=== PATIENT | male | born 1985 | race Caucasian/White ===

== ENCOUNTER 2016-06-25 14:58 | Emergency (ER) | payer OTHER ==
--- NOTE | 2016-07-08 09:02 | ED MAR SUMMARY ---
..... Medication Administration Record [facility] [address] [place], [place] [id number] Patient: JESSIE MEDINA Visit ID: [id number] 30y, M Weight: 87.9 kg Height/Length: 63 in BMI: 34.3 ALLERGIES: No Known Drug Allergy
--- NOTE | 2016-07-08 09:02 | ED NURSING NOTES ---
Clinical Report - Nurses [facility] [address] [place] [address] 06/25/2016 15:00 Patient: JESSIE MEDINA TRIAGE Triage time 1505. Acuity: LEVEL 3. Chief Complaint: SUICIDAL THOUGHTS. Alert. No acute distress. --15:15 Carol Desouza 15:11 06/25/16. BP: 132/85. HR: 80. RR: 16. O2 saturation: 99%. Temp: 98.7 F. Pain level now 0/10. --15:15 Carol Desouza. Weight: 87.9 kg. Height/Length: 63 inches. BMI: 34.3. --15:02 Carol Desouza. Medications Gabapentin Oral. HydrOXYzine HCl Oral. Latuda Oral. Trileptal Oral. --15:13 Carol Desouza. Allergies No Known Drug Allergy. --15:13 Carol Desouza. History Arrived by private vehicle. Historian: patient. Accompanied by family. Onset. (3 days ago). ( Pt was recently released from [facility], he had an issue filling his rxs due to errors, rx are now getting filled and he can pick them up, however, pt feels he has now been off of them for so long that he needs to be restabilized as he feels SI and thinks he would want to OD on them once picked up). 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 SOCIAL HX: Heavy tobacco smoker (cigarette)- less than 1 pack per day. Occasional alcohol use. History of drug use: marijuana. --15:15 Carol Desouza. PROBLEMS: Suicidal Ideation. Hx of cutting. PTSD. Bipolar Disorder. Depression. Mental Illness. Hypertension. Facial Fracture. Head Injury. Contusion. Fall. --15:14 Carol Desouza. Interventions ID band on patient. To treatment room. --15:15 Carol Desouza. PHYSICAL ASSESSMENT Ambulatory to room. GENERAL / NEURO / PSYCH: Alert. Appears in no acute distress. Speech within normal limits. Poor eye contact. Affect appears normal. Patient appears calm and cooperative. Patient appears agitated. Patient appears well-nourished and unkempt. RESPIRATORY: Respirations not labored. Breath sounds within normal limits. CVS: Normal heart rate and rhythm. Capillary refill less than 2 seconds. GI / : Abdomen soft and nontender. Bowel sounds within normal limits. SKIN: Skin intact. Skin is warm and dry. Skin color is within normal limits. --15:16 Carol Desouza GENERAL / NEURO / PSYCH: The patient describes intermittent suicidal thoughts and has a specific plan (with access to the planned method). Patient has been placed in a safe room and direct sight of the station (3 days ago). --15:18 Carol Desouza. NURSING PROGRESS NOTES The plan of care for this patient has been created. Reassurance given. Bed placed in lowest position. Brakes of bed on. Patient ready for evaluation- chart flagged. --15:17 Carol Dseouza ( Pt noted to have eloped, security aware.). --15:39 Carol Desouza. DISPOSITION / DISCHARGE Departure time: 1530. --15:39 Carol Desouza. Locked/Released at 07/08/2016 9:01 by Sabrina Winslow R.N.
--- NOTE | 2016-07-08 09:02 | ED MED RECONCILIATION SUMMARY ---
Patient: JESSIE MEDINA Medication Reconciliation Report [facility] VisitID: [id number] [address] [place] [address] 30y, M Registration Date/Time: 06/25/2016 Weight: 87.9 kg Height/Length: 63 in. BMI: 34.3 ALLERGIES: No Known Drug Allergy The patient's Home Medications are listed below: THE FOLLOWING MEDICATIONS NEED TO BE RECONCILED: Gabapentin Oral HydrOXYzine HCl Oral Latuda Oral Trileptal Oral The source(s) of the original Home Medication information: Not obtained. The following Medications were given to the patient in the Emergency Department: None. The following Medications were prescribed to the patient: None.
--- NOTE | 2016-07-08 09:02 | ED MAR SUMMARY ---
..... Medication Administration Record [facility] [address] [place] [place], [place] [id number] Patient: JESSIE MEDINA Visit ID: [id number] 30y, M Weight: 87.9 kg Height/Length: 63 in BMI: 34.3 ALLERGIES: No Known Drug Allergy
--- NOTE | 2016-07-08 09:02 | ED NURSING NOTES ---
Clinical Report - Nurses [facility] [address] [place] [address] 06/25/2016 15:00 Patient: JESSIE MEDINA TRIAGE Triage time 1505. Acuity: LEVEL 3. Chief Complaint: SUICIDAL THOUGHTS. Alert. No acute distress. --15:15 Carol Desouza 15:11 06/25/16. BP: 132/85. HR: 80. RR: 16. O2 saturation: 99%. Temp: 98.7 F. Pain level now 0/10. --15:15 Carol Desouza. Weight: 87.9 kg. Height/Length: 63 inches. BMI: 34.3. --15:02 Carol Desouza. Medications Gabapentin Oral. HydrOXYzine HCl Oral. Latuda Oral. Trileptal Oral. --15:13 Carol Desouza. Allergies No Known Drug Allergy. --15:13 Carol Desouza. History Arrived by private vehicle. Historian: patient. Accompanied by family. Onset. (3 days ago). ( Pt was recently released from [facility], he had an issue filling his rxs due to errors, rx are now getting filled and he can pick them up, however, pt feels he has now been off of them for so long that he needs to be restabilized as he feels SI and thinks he would want to OD on them once picked up). 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 SOCIAL HX: Heavy tobacco smoker (cigarette)- less than 1 pack per day. Occasional alcohol use. History of drug use: marijuana. --15:15 Carol Desouza. PROBLEMS: Suicidal Ideation. Hx of cutting. PTSD. Bipolar Disorder. Depression. Mental Illness. Hypertension. Facial Fracture. Head Injury. Contusion. Fall. --15:14 Carol Desouza. Interventions ID band on patient. To treatment room. --15:15 Carol Desouza. PHYSICAL ASSESSMENT Ambulatory to room. GENERAL / NEURO / PSYCH: Alert. Appears in no acute distress. Speech within normal limits. Poor eye contact. Affect appears normal. Patient appears calm and cooperative. Patient appears agitated. Patient appears well-nourished and unkempt. RESPIRATORY: Respirations not labored. Breath sounds within normal limits. CVS: Normal heart rate and rhythm. Capillary refill less than 2 seconds. GI / : Abdomen soft and nontender. Bowel sounds within normal limits. SKIN: Skin intact. Skin is warm and dry. Skin color is within normal limits. --15:16 Carol Desouza GENERAL / NEURO / PSYCH: The patient describes intermittent suicidal thoughts and has a specific plan (with access to the planned method). Patient has been placed in a safe room and direct sight of the station (3 days ago). --15:18 Carol Desouza. NURSING PROGRESS NOTES The plan of care for this patient has been created. Reassurance given. Bed placed in lowest position. Brakes of bed on. Patient ready for evaluation- chart flagged. --15:17 Carol Desouza ( Pt noted to have eloped, security aware.). --15:39 Carol Desouza. DISPOSITION / DISCHARGE Departure time: 1530. --15:39 Carol Desouza. Locked/Released at 07/08/2016 9:01 by Sabrina Winslow R.N.
--- NOTE | 2016-07-08 09:02 | ED MED RECONCILIATION SUMMARY ---
Patient: JESSIE MEDINA Medication Reconciliation Report [facility] VisitID: [id number] [address] [place] [place] [address] 30y, M Registration Date/Time: 06/25/2016 Weight: 87.9 kg Height/Length: 63 in. BMI: 34.3 ALLERGIES: No Known Drug Allergy The patient's Home Medications are listed below: THE FOLLOWING MEDICATIONS NEED TO BE RECONCILED: Gabapentin Oral HydrOXYzine HCl Oral Latuda Oral Trileptal Oral The source(s) of the original Home Medication information: Not obtained. The following Medications were given to the patient in the Emergency Department: None. The following Medications were prescribed to the patient: None.
== END 2016-06-25 15:30 | disposition left against medical advice (07) ==
LOC: ED SRH 14:58
DX: F41.9 Anxiety disorder, unspecified (principal)

== ENCOUNTER → 2016-06-25 | Emergency (ER) | payer OTHER ==
--- NOTE | 2016-06-25 23:15 | DIAGNOSTIC IMAGING REPORT ---
PROCEDURE: XR WRIST MIN 3 VIEWS - RIGHT INDICATION: REEVAL OF SCAPHOID FRACTURE TECHNIQUE: Five views. COMPARISON: None. FINDINGS: There is a healing transverse fracture of the body of the carpal navicular (scaphoid) which is transfixed with solitary screw (near anatomic position). The rest the osseous structures and joint spaces are normal IMPRESSION: 1. Healing fracture of the right carpal navicular (scaphoid) transfixed with solitary screw (near anatomic position). 2. Fine discussed with Dr. Tapan Valdez.
--- NOTE | 2016-06-26 17:10 | ED CLINICAL REPORT ---
Clinical Report - Physicians/Mid Levels [facility] [address] [place] [address] 06/25/2016 16:05 Patient: JESSIE MEDINA Time Seen: 16:30 Jun 25 2016. Arrived- By private vehicle. Historian- patient. HISTORY OF PRESENT ILLNESS Chief Complaint: ANXIOUS and SUICIDAL THOUGHTS and ATTEMPT, (Appears anxious and in distress. Poor eye contact. Appears anxious ("feels hopeless"). He describes constant suicidal thoughts and has a specific plan (with access to the planned method). Prior history of suicidal thoughts. Continuous supervision provided and nurse present at the bedside. Patient has been placed in direct sight of the station. Clothes/valuables were removed and placed in the nurses station. ED physician was notified.) and No sleep for 2 days. 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 (Patient indicates that he was in an [facility] facility and got transferred over to [facility] about a week ago. Patient was stabilized on medications and discharged from [facility] with 2 days worth of medication. But because of insurance problems and pharmacy problems he has been unable to obtain his medications. He's been off his medications for 5 days. He now feels suicidal again and feels he needs to be stabilized. He admits that he tried to jump out in front of a car today. Says he can do that or take an overdose of pills. Still feels suicidal.). The patient has had anxiety. Has been depressed and had suicidal thoughts. The symptoms are described as moderate. No injury is present. REVIEW OF SYSTEMS No headache, dizziness, weakness, chest pain or palpitations. No abdominal pain, vomiting, diarrhea, black stools or fever. No sore throat, cough, difficulty breathing, urinary frequency or skin rash. No enlarged lymph nodes. All systems otherwise negative, except as recorded above. PAST HISTORY Heart disease. Prior suicide attempt. ( Admitted to [facility] about a week ago. Hit the wall with his right fist and broke his hand.). SOCIAL HISTORY Has social support. Has place to stay (Father). ADDITIONAL NOTES The nursing notes have been reviewed. PHYSICAL EXAM Vital Signs: 06/25/2016 16:16 BP: 135/82. HR: 84. RR: 16. O2 saturation: 100%. Temp: 98.8 F. Appearance: Alert. Appearance is normal. Patient is in mild distress. Anxious. Eyes: Pupils equal, round and reactive to light. Neck: Normal inspection. Neck supple. CVS: Normal heart rate and rhythm. Heart sounds normal. Respiratory: Breath sounds normal. Chest nontender. Abdomen: Soft and nontender. Back: No tenderness. Skin: Skin warm. Normal skin color. Extremities: (cast on RUE). Psych / Neuro: Appears depressed. Blunted affect. Flat affect. Speech normal. Cognition normal. Thought process and content normal. Insight and judgement normal. Cranial nerves normal (as tested). No cerebellar findings. No motor deficit. No sensory deficit. Reflexes normal. LABS, X-RAYS, AND EKG Laboratory Tests: [place] Level: (DANI: 06/26/2016 00:01) ( [facility] 06/26/2016 06:11) Final results Test Result Flag Units (Reference) LITHIUM 1.5 mmol/L (0.5-1.5) UA-Culture if indicated: (DANI: 06/25/2016 16:05) ( [facility] 06/25/2016 21:05) Final results Test Result Flag Units (Reference) URINE COLOR YELLOW URINE APPEARANCE CLEAR URINE GLUCOSE NEGATIVE (NEGATIVE) URINE BILIRUBIN NEGATIVE (NEGATIVE) URINE KETONE NEGATIVE (NEGATIVE) URINE SPECIFIC GRAVITY 1.015 (1.010-1.030) URINE PH 7.0 (5.0-8.0) URINE PROTEIN NEGATIVE (NEGATIVE) URINE UROBILINOGEN >=8.0 EU/dL (0.2-1.0) URINE NITRITE NEGATIVE (NEGATIVE) URINE BLOOD NEGATIVE (NEGATIVE) URINE LEUK ESTERASE NEGATIVE (NEGATIVE) URINE RBC Test not performed rbc/hpf (0-1) URINE WBC Test not performed wbc/hpf (0-1) URINE EPITHELIAL CELLS Test not performed EPI/hpf (0-5) URINE BACTERIA Test not performed (NONE SEEN) URINE COMMENT Test not performed CBC w Diff: (DANI: 06/25/2016 20:45) ( [facility] 06/25/2016 21:07) Final results Test Result Flag Units (Reference) WHITE BLOOD COUNT 6.4 K/uL (4.5-11.5) RED BLOOD COUNT 4.58 M/uL (4.50-5.90) HEMOGLOBIN 13.8 gm/dL (13.5-17.5) HEMATOCRIT 40.4 L % (41.0-53.0) MEAN CELL VOLUME 88 fL (80-100) MEAN CORPUSCULAR HGB 30 pg (26-34) MEAN CORPUSCULAR HGB CONC 34 g/dL (31-37) RED CELL DISTRIBUTION WIDTH 13.7 % (11.6-14.8) PLATELET COUNT 253 K/uL (150-400) NEUTROPHIL % 41.9 L % (50-75) LYMPH % 45.8 H % (25-40) MONO % 9.7 % (3-14) EOSINOPHIL % 1.9 % (0-4) BASOPHIL % 0.7 % (0-2) CMP: (DANI: 06/25/2016 20:45) ( [facility] 06/25/2016 21:19) Final results Test Result Flag Units (Reference) GLUCOSE 99 mg/dL (70-110) BUN 12 mg/dL (7-18) CREATININE 0.8 mg/dL (0.6-1.3) Estimated GFR >60 mL/min Estimated GFR- >60 mL/min Note: Persistent reduction over 3 months in eGFR<60 mL/min/1.73 m2 defines CKD. Patients with eGFR values>=60 mL/min/1.73 m2 may also have CKD if evidence ofpersistent proteinuria. Additional information may be foundat [email or web address]. SODIUM 134 L mmol/L (136-145) POTASSIUM 3.8 mmol/L (3.5-5.1) CHLORIDE 103 mmol/L (98-107) CARBON DIOXIDE 25 mmol/L (21-32) CALCIUM 8.1 L mg/dL (8.5-10.1) TOTAL PROTEIN 7.1 g/dL (6.4-8.2) ALBUMIN 3.7 g/dL (3.3-5.0) BILIRUBIN, TOTAL 0.6 mg/dL (0.0-1.0) ALKALINE PHOSPHATASE 73 U/L (46-116) AST (SGOT) 40 H U/L (15-37) ALT (SGPT) 96 H U/L (12-78) Urine Drug Screen: (DANI: 06/25/2016 16:05) ( [facility] 06/25/2016 16:46) Final results Test Result Flag Units (Reference) AMPHETAMINE/METHAMPHETAMINE NEGATIVE (NEGATIVE) BARBITURATE NEGATIVE (NEGATIVE) BENZODIAZEPINE NEGATIVE (NEGATIVE) CANNABINOID POSITIVE H (NEGATIVE) COCAINE NEGATIVE (NEGATIVE) ECSTASY NEGATIVE (NEGATIVE) METHADONE NEGATIVE (NEGATIVE) OPIATE NEGATIVE (NEGATIVE) The urine drug screen is a qualitative screening test fordrug overdose and abuse. All screen results should beconsidered as presumptive.Drugs screened for are as follows:BenzodiazepinesCocaineAmphetamines/MetamphetaminesTHC (Tetrahydrocannabinol)OpiatesBarbituratesEcstasyMethadonePositive results are unconfirmed. For confirmation, notifythe lab for the specimen to be sent to the reference lab.All confirmations must be performed by a differentmethodology.The ingestion of natural herbal and plant productscontaining Ephedra/Ephedra metabolites can produce in urineone or more substances capable of cross reacting withamphetamine/methamphetamine immunoassays. These testsprovide a preliminary result only. A more specificalternative chemical method must be used to obtain aconfirmed analytical result. . PROGRESS AND PROCEDURES Course of Care: 19:29 06/25/16. RN able to get CD P agreeable to evaluating the patient . CD P insists lab necessary for admission to facility. I reviewed the patient's history and exam findings and lab results with Dr. Newman at change of shift. My findings were consistent with those noted by him. I discussed the case with the CDP and he arranged for the patient to be admitted to a mental health facility. Patient/family counseled. Disposition: Transferred. CLINICAL IMPRESSION Suicidal ideation. (Electronically signed by Power Sprague MD 06/26/2016 21:05) Addenda for JESSIE MEDINA VisitID: [id number] Date: 06/25/2016 06/25/2016 22:39 No facility will accept patient due to splint on right wrist. XR ordered. Patient with splint on for 1 month. Will reevaluate with XR. (Electronically signed by Tapan Valdez Dr. - 06/25/2016 22:39) 06/26/2016 2:28 Patient will not be accepted at [facility] due to the splint and the fracture. Apparently if patient needs to be placed in restraints, it would worsen the fracture and the splint could be used as a weapon per facility. Not clear why a medically necessary intervention for fracture would not be allowed. Further more, has been cooperative here in the ED and NOT requiring any restraints. (Electronically signed by Tapan Valdez Dr. - 06/26/2016 2:28) 06/26/2016 2:29 Telepsych contacted. Will call us back. (Electronically signed by Tapan Valdez Dr. - 06/26/2016 2:29) 06/26/2016 5:08 Telepsych contacted. Recommendations as follows: 1. Admit patient to inpatient psych unit to ensure safety and stabilization and to initiate treatment. 2. Patient is admitted on a voluntary status 3. Safety precautions as per the protocol. Please maintain 1:1 obs while patient in the ER 4. Restart outpatient meds once reconciled 5. Place standard/routine behav health admission order set 6. Liaison closely with previous outpatient psychiatrist and providers 7. Liaison closely with patient's father 8. Patient will benefit from intensive outpatient psychotherapy and day time struction upon discharge (Electronically signed by Tapan Valdez Dr. - 06/26/2016 5:08)
--- NOTE | 2016-06-26 17:10 | ED CLINICAL REPORT ---
Clinical Report - Physicians/Mid Levels [facility] [address] [place] [address] 06/25/2016 16:05 Patient: JESSIE MEDINA Time Seen: 16:30 Jun 25 2016. Arrived- By private vehicle. Historian- patient. HISTORY OF PRESENT ILLNESS Chief Complaint: ANXIOUS and SUICIDAL THOUGHTS and ATTEMPT, (Appears anxious and in distress. Poor eye contact. Appears anxious ("feels hopeless"). He describes constant suicidal thoughts and has a specific plan (with access to the planned method). Prior history of suicidal thoughts. Continuous supervision provided and nurse present at the bedside. Patient has been placed in direct sight of the station. Clothes/valuables were removed and placed in the nurses station. ED physician was notified.) and No sleep for 2 days. 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 (Patient indicates that he was in an [facility] facility and got transferred over to [facility] about a week ago. Patient was stabilized on medications and discharged from [facility] with 2 days worth of medication. But because of insurance problems and pharmacy problems he has been unable to obtain his medications. He's been off his medications for 5 days. He now feels suicidal again and feels he needs to be stabilized. He admits that he tried to jump out in front of a car today. Says he can do that or take an overdose of pills. Still feels suicidal.). The patient has had anxiety. Has been depressed and had suicidal thoughts. The symptoms are described as moderate. No injury is present. REVIEW OF SYSTEMS No headache, dizziness, weakness, chest pain or palpitations. No abdominal pain, vomiting, diarrhea, black stools or fever. No sore throat, cough, difficulty breathing, urinary frequency or skin rash. No enlarged lymph nodes. All systems otherwise negative, except as recorded above. PAST HISTORY Heart disease. Prior suicide attempt. ( Admitted to [facility] about a week ago. Hit the wall with his right fist and broke his hand.). SOCIAL HISTORY Has social support. Has place to stay (Father). ADDITIONAL NOTES The nursing notes have been reviewed. PHYSICAL EXAM Vital Signs: 06/25/2016 16:16 BP: 135/82. HR: 84. RR: 16. O2 saturation: 100%. Temp: 98.8 F. Appearance: Alert. Appearance is normal. Patient is in mild distress. Anxious. Eyes: Pupils equal, round and reactive to light. Neck: Normal inspection. Neck supple. CVS: Normal heart rate and rhythm. Heart sounds normal. Respiratory: Breath sounds normal. Chest nontender. Abdomen: Soft and nontender. Back: No tenderness. Skin: Skin warm. Normal skin color. Extremities: (cast on RUE). Psych / Neuro: Appears depressed. Blunted affect. Flat affect. Speech normal. Cognition normal. Thought process and content normal. Insight and judgement normal. Cranial nerves normal (as tested). No cerebellar findings. No motor deficit. No sensory deficit. Reflexes normal. LABS, X-RAYS, AND EKG Laboratory Tests: [place] Level: (DANI: 06/26/2016 00:01) ( [facility] 06/26/2016 06:11) Final results Test Result Flag Units (Reference) LITHIUM 1.5 mmol/L (0.5-1.5) UA-Culture if indicated: (DANI: 06/25/2016 16:05) ( [facility] 06/25/[place] 21:05) Final results Test Result Flag Units (Reference) URINE COLOR YELLOW URINE APPEARANCE CLEAR URINE GLUCOSE NEGATIVE (NEGATIVE) URINE BILIRUBIN NEGATIVE (NEGATIVE) URINE KETONE NEGATIVE (NEGATIVE) URINE SPECIFIC GRAVITY 1.015 (1.010-1.030) URINE PH 7.0 (5.0-8.0) URINE PROTEIN NEGATIVE (NEGATIVE) URINE UROBILINOGEN >=8.0 EU/dL (0.2-1.0) URINE NITRITE NEGATIVE (NEGATIVE) URINE BLOOD NEGATIVE (NEGATIVE) URINE LEUK ESTERASE NEGATIVE (NEGATIVE) URINE RBC Test not performed rbc/hpf (0-1) URINE WBC Test not performed wbc/hpf (0-1) URINE EPITHELIAL CELLS Test not performed EPI/hpf (0-5) URINE BACTERIA Test not performed (NONE SEEN) URINE COMMENT Test not performed CBC w Diff: (DANI: 06/25/2016 20:45) ( [facility] 06/25/2016 21:07) Final results Test Result Flag Units (Reference) WHITE BLOOD COUNT 6.4 K/uL (4.5-11.5) RED BLOOD COUNT 4.58 M/uL (4.50-5.90) HEMOGLOBIN 13.8 gm/dL (13.5-17.5) HEMATOCRIT 40.4 L % (41.0-53.0) MEAN CELL VOLUME 88 fL (80-100) MEAN CORPUSCULAR HGB 30 pg (26-34) MEAN CORPUSCULAR HGB CONC 34 g/dL (31-37) RED CELL DISTRIBUTION WIDTH 13.7 % (11.6-14.8) PLATELET COUNT 253 K/uL (150-400) NEUTROPHIL % 41.9 L % (50-75) LYMPH % 45.8 H % (25-40) MONO % 9.7 % (3-14) EOSINOPHIL % 1.9 % (0-4) BASOPHIL % 0.7 % (0-2) CMP: (DANI: 06/25/2016 20:45) ( [facility] 06/25/2016 21:19) Final results Test Result Flag Units (Reference) GLUCOSE 99 mg/dL (70-110) BUN 12 mg/dL (7-18) CREATININE 0.8 mg/dL (0.6-1.3) Estimated GFR >60 mL/min Estimated GFR- >60 mL/min Note: Persistent reduction over 3 months in eGFR<60 mL/min/1.73 m2 defines CKD. Patients with eGFR values>=60 mL/min/1.73 m2 may also have CKD if evidence ofpersistent proteinuria. Additional information may be foundat [email or web address].org. SODIUM 134 L mmol/L (136-145) POTASSIUM 3.8 mmol/L (3.5-5.1) CHLORIDE 103 mmol/L (98-107) CARBON DIOXIDE 25 mmol/L (21-32) CALCIUM 8.1 L mg/dL (8.5-10.1) TOTAL PROTEIN 7.1 g/dL (6.4-8.2) ALBUMIN 3.7 g/dL (3.3-5.0) BILIRUBIN, TOTAL 0.6 mg/dL (0.0-1.0) ALKALINE PHOSPHATASE 73 U/L (46-116) AST (SGOT) 40 H U/L (15-37) ALT (SGPT) 96 H U/L (12-78) Urine Drug Screen: (DANI: 06/25/2016 16:05) ( [facility] 06/25/2016 16:46) Final results Test Result Flag Units (Reference) AMPHETAMINE/METHAMPHETAMINE NEGATIVE (NEGATIVE) BARBITURATE NEGATIVE (NEGATIVE) BENZODIAZEPINE NEGATIVE (NEGATIVE) CANNABINOID POSITIVE H (NEGATIVE) COCAINE NEGATIVE (NEGATIVE) ECSTASY NEGATIVE (NEGATIVE) METHADONE NEGATIVE (NEGATIVE) OPIATE NEGATIVE (NEGATIVE) The urine drug screen is a qualitative screening test fordrug overdose and abuse. All screen results should beconsidered as presumptive.Drugs screened for are as follows:BenzodiazepinesCocaineAmphetamines/MetamphetaminesTHC (Tetrahydrocannabinol)OpiatesBarbituratesEcstasyMethadonePositive results are unconfirmed. For confirmation, notifythe lab for the specimen to be sent to the reference lab.All confirmations must be performed by a differentmethodology.The ingestion of natural herbal and plant productscontaining Ephedra/Ephedra metabolites can produce in urineone or more substances capable of cross reacting withamphetamine/methamphetamine immunoassays. These testsprovide a preliminary result only. A more specificalternative chemical method must be used to obtain aconfirmed analytical result. . PROGRESS AND PROCEDURES Course of Care: 19:29 06/25/16. RN able to get CD P agreeable to evaluating the patient . CD P insists lab necessary for admission to facility. I reviewed the patient's history and exam findings and lab results with Dr. Newman at change of shift. My findings were consistent with those noted by him. I discussed the case with the CDP and he arranged for the patient to be admitted to a mental health facility. Patient/family counseled. Disposition: Transferred. CLINICAL IMPRESSION Suicidal ideation. (Electronically signed by Power Sprague MD 06/26/2016 21:05) Addenda for JESSIE MEDINA VisitID: [id number] Date: 06/25/2016 06/25/2016 22:39 No facility will accept patient due to splint on right wrist. XR ordered. Patient with splint on for 1 month. Will reevaluate with XR. (Electronically signed by Tapan Valdez Dr. - 06/25/2016 22:39) 06/26/2016 2:28 Patient will not be accepted at [facility] due to the splint and the fracture. Apparently if patient needs to be placed in restraints, it would worsen the fracture and the splint could be used as a weapon per facility. Not clear why a medically necessary intervention for fracture would not be allowed. Further more, has been cooperative here in the ED and NOT requiring any restraints. (Electronically signed by Tapan Valdez Dr. - 06/26/2016 2:28) 06/26/2016 2:29 Telepsych contacted. Will call us back. (Electronically signed by Tapan Valdez Dr. - 06/26/2016 2:29) 06/26/2016 5:08 Telepsych contacted. Recommendations as follows: 1. Admit patient to inpatient psych unit to ensure safety and stabilization and to initiate treatment. 2. Patient is admitted on a voluntary status 3. Safety precautions as per the protocol. Please maintain 1:1 obs while patient in the ER 4. Restart outpatient meds once reconciled 5. Place standard/routine behav health admission order set 6. Liaison closely with previous outpatient psychiatrist and providers 7. Liaison closely with patient's father 8. Patient will benefit from intensive outpatient psychotherapy and day time struction upon discharge (Electronically signed by Tapan Valdez Dr. - 06/26/2016 5:08)
--- NOTE | 2016-06-26 17:10 | ED NURSING NOTES ---
Clinical Report - Nurses [facility] [place] [address] 06/25/2016 16:05 Patient: JESSIE MEDINA TRIAGE Triage time 16:17 Jun 25 2016. Acuity: LEVEL 2. Chief Complaint: DEPRESSION, SUICIDAL THOUGHTS and ANXIETY. Alert. No acute distress. SEPSIS SCREEN: Sepsis Screen. Negative (no infection suspected/documented). BREATHALYZER: Breathalyzer (0.00). --16:22 John Connell R.N. 16:16 06/25/16. BP: 135/82. HR: 84. RR: 16. O2 saturation: 100%. Temp: 98.8 F. --16:22 John Connell R.N. Weight: 89.8 kg stated. Height/Length: 63 inches Per Patient. BMI: 35.1. --16:16 John Connell R.N. Medications Gabapentin Oral. HydrOXYzine HCl Oral. Latuda Oral. Trileptal Oral. --16:17 John Connell R.N. Allergies Acetaminophen. --16:17 John Connell R.N. The following entry was struck by Jonh Connell R.N., 17:08 (06/25/16) Reason - wrong value. <<STRICKEN ENTRY-- No Known Drug Allergy. --16:17 John Connell R.N. --END STRIKE>>. History Arrived by private vehicle. Historian: patient. Onset. (1 week). He has had anxiety and describes feelings of depression. PAST MEDICAL HX: Immunizations: up-to-date. SOCIAL HX: Current every day heavy tobacco smoker (cigarette)- less than 1 pack per day. History of drug use: marijuana. (Pt reports none used today.). No alcohol use. SELF HARM ASSESSMENT: A self harm assessment was performed. The patient answered "yes" to the question "Have you recently felt down, depressed, or hopeless?", "Have you noticed less interest or pleasure in doing things?", "Do you have thoughts of harming or killing yourself?", "Are you here because you tried to hurt yourself?", "Have you ever tried to hurt yourself before today?" and "Have you recently had thoughts about harming or killing others?". Unable to assess the patient in regard to the question "Do you have any dangerous items in your possession?". The patient reports their behavior as agitated, restless, irritable and anxious and included suicidal comments. In the ED the patient has been agitated, restless and anxious and made suicidal comments. He has been placed under continuous supervision. He was placed in direct sight of the nurses station. Clothes and valuables were removed and placed at the nurses station. The ED physician has been notified. FALL RISK ASSESSMENT: Fall risk assessment completed. No fall risk identified. NUTRITIONAL RISK ASSESSMENT: The nutritional risk assessment revealed no deficiencies. FUNCTIONAL ASSESSMENT: Functional assessment performed: independent with the activities of daily living. LEARNING NEEDS ASSESSMENT: A learning needs assessment was performed. Factors affecting the patient's ability to learn include emotional barriers. SKIN INTEGRITY ASSESSMENT: Skin integrity risk assessment was performed. (Broken wrist). --16:22 John Connell R.N. ( When patient was asked if he had a plan to harm himself, he stated he would fill his prescription for his psych medication and "take all the pills" He stated "i can't take it anymore. I feel like I'm about to have a mental break."). --16:51 Melanie Hall R.N. Interventions ID band on patient. To treatment room. --16:22 John Connell R.N. PHYSICAL ASSESSMENT Ambulatory to room. GENERAL / NEURO / PSYCH: Alert. Oriented X 4. Appears anxious and in distress. Poor eye contact. Appears anxious ("feels hopeless"). He describes constant suicidal thoughts and has a specific plan (with access to the planned method). Prior history of suicidal thoughts. Continuous supervision provided and nurse present at the bedside. Patient has been placed in direct sight of the station. Clothes/valuables were removed and placed in the nurses station. ED physician was notified. RESPIRATORY: Respirations not labored. SKIN: Skin is warm and dry. Skin color is within normal limits. --16:24 John Connell R.N. 16:24 06/25/16. SKIN: ( Ortho splint in place to R wrist. Pt reports he broke his wrist. He is c/o pain.). --17:12 John Connell R.N. NURSING PROGRESS NOTES Patient gowned. Suicide precautions initiated: a safety sweep of the room is ongoing. Room made safe. Frequent one on one supervision, nurse at bedside, checks performed every 15 minutes, clothing / valuables removed and placed at the nurse's station. Patient placed in direct sight of the nurse's station. ED Physician has been notified. Two patient identifiers checked. Call light placed in reach. Bed placed in lowest position. Patient ready for evaluation- chart flagged and ED physician notified. --16:24 John Connell R.N. Time-out completed immediately before the procedure: verified identity of patient (name and birthdate). (ETOH breathylizer 0.00) --16:29 Melanie Hall R.N. ( Belongings moved to locker and lock was applied.). --16:36 John Connell R.N. ( Pt given water. Direct line of sight from Nurse's station.). --16:37 Melanie Hall R.N. 17:07 06/25/16. ( Placed a call to [facility] to request a mental health evaluation. Was told that Pt would have to be seen by [facility] before [facility] could send anyone to evaluate him d/t Pt's voluntary admission status and because [facility] is already following the Pt. Instructions were given that [facility] will be calling ED this evening.). --17:07 John Connell R.N. The patient is calm and resting quietly. Overall patient status is the same- he states feels the same. GENERAL / NEURO / PSYCH: The patient reports restlessness. Patient appears calm and cooperative. --17:22 John Connell R.N. Patient waiting for evaluation. --17:23 John Connell R.N. ( Direct line of sight from nurse's station. Pt. sleeping, arrousable.). --17:53 Melanie Hall R.N. ( pt belongings in locker #1). --18:12 Melanie Hall R.N. ( Return phone call from [facility]. 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 He was to follow up by phone with kiki tomorrow. After telling kiki of the circumstances that brought pt. to the ED, Kiki then stated he was going to write an affidavit of detainment and send it to [facility]. He asked if I could contact [facility] and tell them of this and ask for a CDMHP to be sent to the ED. [facility] was contacted, Carlita, community education specialist. After speaking with Carlita, she stated that the patient does not meet criteria for CDP detainment as he is voluntary. She is going to call [facility] services, and discuss with him the case. one of them will be calling back the ED with the plan for the patient. At this time the patient is still sleeping. He is in direct line of sight from the nurse's station.). --18:26 Melanie Hall R.N. ( VOChong called to inform us that Diana from [facility] will be coming to assess Pt. ). --18:54 John Connell R.N. ( Pt is sleeping, direct line of sigh with nurse's station at this time, resting in room.). --18:55 John Connell R.N. ( PATTI MedinaMariana called. Will be on site approx 2029. Report to THUY Medina for end of shift coverage transfer of care.). --19:02 Melanie Hall R.N. 19:56 06/25/16. The patient is sleeping. RESPIRATORY: No respiratory distress. --19:56 Carol Park R.N. 20:54 Patient given sandwich and gatorade per request. --20:54 McQuoid, Kaitlin, ER Tech1 22:58 06/25/16. ( Xray at bedside, right wrist splint removed for films). --22:58 Carol Park R.N. 23:32 06/25/16. ( Spoke with Sandra from [facility] accept patient because he is wearing a splint on his right wrist. MD informed. Right wrist xrayed showing surgical pin in scaphoid bone, healing but not completely healed and will need to continue wearing splint. Due to need for splint on wrist, [facility] unable to accept patient as they would not be able to apply wrist restraints without possibly causing injury. [facility] Carol has informed me that Psych services will have to walk away and likely wait until tomorrow to have patient placed. Per MD, patient will not be released as he is an eminent threat to his own safety.). --23:32 Carol Park R.N. 00:38 06/26/16. ( Will be holding patient overnight for re-eval for psych placement in the morning. Patient given sandwich and milk per request. Patient voices no complaints.). --00:38 Carol Park R.N. ( Consulting tele-psyche). --02:25 Carol Park R.N. 03:52 Tele-Psych evaluation in process. --03:53 Helga Guevara R.N. 04:12 06/26/16. BP: 120/66. HR: 60. RR: 14. O2 saturation: 100%. Temp: 98.4 F. --04:12 Jose Luis Junior, ER Tech1 05:19 06/26/16. The patient reports no complaints and he is calm and resting quietly. --05:19 Carol Park R.N. Medication list and dosages obtained from [facility]. --05:56 McKaitlin Alcocer, ER Tech1 06:28 06/26/2016 -- (Mirtazapine 7.5 mg PO daily) was refused by patient because of pt said he refused to take the med. "my medication works just fine, I refuse to take this. ". Braden Mosqueda --06:28 Braden Mosqueda R.N. Care transferred and report received. --07:20 Cook, John, R.N. Call light placed in reach. Bed placed in lowest position. ( Pt resting in room, direct line of sight with nurse's station.). --07:56 John Connell R.N. ( Patient still resting, line of sight with nurse's station, performing frequent safety checks.). --08:29 John Connell R.N. ( Pt. within direct line of sight of nursing station. Still sleeping. Breakfast ordered.). --08:58 Melanie Hall R.N. ( Pt is awake in his room, asking what the plan is. Pt is relaxed, cooperative, line of sight with nurse's station.). --11:16 John Connell R.N. ( [facility] called to determine the need for a secondary request for eval from [facility] to attempt to find placement for Pt. Will call back with ETA.). --11:37 John Connell R.N. Two patient identifiers checked. Call light placed in reach. Bed placed in lowest position. ( Pt up to restroom and escorted back to his room. Checked VS.). --12:25 John Connell R.N. 12:25 06/26/16. BP: 115/62. HR: 61. RR: 16. O2 saturation: 100% on room air. Temp: 97.7 F. Pain level now: 05/20. --12:26 John Connell R.N. ( Pt voiced that "I do not want to be here." When asked if he wanted help he said "no and I never did. My dad made me come here yesterday." Pt would not answer when asked if he leaves here that he plans to harm himself. He asked staff to leave him alone right now. Direct line of sight with nurse's station. Monitoring.). --12:29 John Connell R.N. ( CDMHP at nurse's station). --13:05 Melanie Hall R.N. ( Pt resting in room. Direct line of sight with nurse's station.). --13:32 John Connell R.N. ( Pt awake, lying down in his room. No needs at this time. Informed Tech that he plans to stay. CDMHP work in progress.). --14:02 John Connell R.N. ( Pt. was seen eloping from rm. 13. Two nurses, one tech and security followed the patient to [place] . 911 was called, police given a description of patient. they will attempt to locate and bring patient back.). --15:25 Melanie Hall R.N. ( Patient brought back by police.). --15:34 Melanie Hall R.N. ( Pt awake in room, direct line of sight with nurse's station, waiting for food from [facility].). --16:17 John Connell R.N. ( Patient now resting quietly. Ate 100% of burger and fries, states he is much more relaxed and not as restless as before. Direct line of sight from nurse's station). --16:21 Melanie Hall R.N. ( Awaiting call back from [facility] to provide Pt with a soft splint for his wrist. Pt is stable, resting in his room, Pt is directly visualized from nurse's station.). --16:45 John Connell R.N. ( Nurse to nurse report to [facility] [phone].). --17:27 Melanie Hall R.N. ( Received report from Melanie. Pt is awaiting [facility] for transport to [facility].). --19:03 Braden Mosqueda R.N. 19:06 06/26/2016 Ativan (LORazepam) PO Tablets 1 mg given. Allergies verified, confirmed 5 rights and sedative warning given to the patient. --19:06 John Connell R.N. ( Report to Braden RN for end of shift coverage.). --19:08 Melanie Hall R.N. ( Pt was explained about A policy for involuntary having to have restraints placed. Pt did not want his vs taken again, but was calm. Pt ambulated to the stretcher with no assistance and was placed in restraints. Pt showed no signs of distress. Pt was alert and oriented x 4. NWA was given the chart. Report was given to the EMT. Pt belongings were given the EMT taking report and placed on the stretcher.). --19:37 Braden Mosqueda R.N. DISPOSITION / DISCHARGE Report was given. Report included patient's care, treatment, medications, reviewed medication reconcilliation, and condition (including any recent changes or anticipated changes). All questions were answered. Report was acknowledged. (Report called to THUY López, at [facility]). --17:56 Melanie Hall R.N. Departure time: 19:37. Transferred to [facility] ([facility] 19:38). --19:38 Braden Mosqueda R.N. Locked/Released at 06/26/2016 19:39 by Braden Mosqueda R.N.
--- NOTE | 2016-06-26 17:10 | ED ORDER SUMMARY ---
..... Patient: JESSIE MEDINA OrderSheet [facility] VisitID: [id number] [address] [place] [address] 30y, M Registration Date/Time: 06/25/2016 ORDER SHEET Weight: 89.8 kg (stated) Allergies: Acetaminophen GENERAL ORDERS: Urine Drug Screen Urgent (16:26 06/25/2016 SStone R.N. per protocol) (Ack 16:27 SStone R.N.) (16:28 MCook R.N.) POC Breathalyzer (16:27 06/25/2016 SStone R.N. per protocol) (Ack 16:27 SStone R.N.) (16:28 MCook R.N.) - (call ESW) (16:50 06/25/2016 Romi HOFFMANN) (16:52 MCook R.N.) CBC w Diff Urgent (20:38 06/25/2016 Romi HOFFMANN) (Ack 20:40 AMcQuoid ER Tech1) (Sent 20:53 AMcQuoid ER Tech1) (20:55 AMcQuoid ER Tech1) CMP Urgent (20:38 06/25/2016 Romi HOFFMANN) (Ack 20:40 AMcQuoid ER Tech1) (Sent 20:53 AMcQuoid ER Tech1) (20:55 AMcQuoid ER Tech1) UA-Culture if indicated Urgent (20:38 06/25/2016 Romi HOFFMANN) (Ack 20:40 AMcQuoid ER Tech1) (Sent 20:53 AMcQuoid ER Tech1) (20:55 AMcQuoid ER Tech1) Wrist 3 or 4V Right Urgent (22:38 06/25/2016 Edy Garcia) (Ack 22:40 AMcQuoid ER Tech1) (22:59 AMcQuoid ER Tech1) Consult - Psych (telepsych) (00:46 06/26/2016 Edy Garcia) (Ack 3:03 AMcQuoid ER Tech1) (4:35 EInderbitzen R.N.) - (Contact patient's pharmacy to verify medications. Notify doc with meds and dosage.) (05:09 06/26/2016 Edy Garcia) (Ack 5:13 AMcQuoid ER Tech1) (5:21 AMcQuoid ER Tech1) [place] Level Urgent (05:46 06/26/2016 Edy Garcia) (5:48 AMcQuoid ER Tech1) MEDICATION ORDERS: Ibuprofen PO 600 mg (NOW) (17:29 06/25/2016 Romi HOFFMANN) (Cancelled: Patient [id number] EInderbitzen R.N.) - (Lurasidone 80 mg PO daily) (05:44 06/26/2016 Edy Garcia) (Ack 10:36 [facility]) -- (Mirtazapine 7.5 mg PO daily) (05:45 06/26/2016 Edy Garcia) (6:28 TLewimatt R.N.) --- (Trileptal 300 mg BID) (05:45 06/26/2016 Edy Garcia) (Ack 10:36 [facility]) Ativan PO 1 mg (HIGH ALERT MEDICATION, NOW) (18:59 06/26/2016 Carlos HOFFMANN) (19:06 Anna R.N.) IV FLUIDS: ORDER SHEET NOTES: [Electronically signed by Braden Mosqueda R.N. (19:39 06/26/2016)] [Electronically signed by Power Sprague MD (21:05 06/26/2016)] [Electronically locked/signed by Braden Mosqueda R.N. (19:39 06/26/2016)]
--- NOTE | 2016-06-26 17:10 | ED NURSING NOTES ---
Clinical Report - Nurses [facility] [place] [address] 06/25/2016 16:05 Patient: JESSIE MEDINA TRIAGE Triage time 16:17 Jun 25 2016. Acuity: LEVEL 2. Chief Complaint: DEPRESSION, SUICIDAL THOUGHTS and ANXIETY. Alert. No acute distress. SEPSIS SCREEN: Sepsis Screen. Negative (no infection suspected/documented). BREATHALYZER: Breathalyzer (0.00). --16:22 John Connell R.N. 16:16 06/25/16. BP: 135/82. HR: 84. RR: 16. O2 saturation: 100%. Temp: 98.8 F. --16:22 John Connell R.N. Weight: 89.8 kg stated. Height/Length: 63 inches Per Patient. BMI: 35.1. --16:16 John Connell R.N. Medications Gabapentin Oral. HydrOXYzine HCl Oral. Latuda Oral. Trileptal Oral. --16:17 John Connell R.N. Allergies Acetaminophen. --16:17 John Connell R.N. The following entry was struck by John Connell R.N., 17:08 (06/25/16) Reason - wrong value. <<STRICKEN ENTRY-- No Known Drug Allergy. --16:17 John Connell R.N. --END STRIKE>>. History Arrived by private vehicle. Historian: patient. Onset. (1 week). He has had anxiety and describes feelings of depression. PAST MEDICAL HX: Immunizations: up-to-date. SOCIAL HX: Current every day heavy tobacco smoker (cigarette)- less than 1 pack per day. History of drug use: marijuana. (Pt reports none used today.). No alcohol use. SELF HARM ASSESSMENT: A self harm assessment was performed. The patient answered "yes" to the question "Have you recently felt down, depressed, or hopeless?", "Have you noticed less interest or pleasure in doing things?", "Do you have thoughts of harming or killing yourself?", "Are you here because you tried to hurt yourself?", "Have you ever tried to hurt yourself before today?" and "Have you recently had thoughts about harming or killing others?". Unable to assess the patient in regard to the question "Do you have any dangerous items in your possession?". The patient reports their behavior as agitated, restless, irritable and anxious and included suicidal comments. In the ED the patient has been agitated, restless and anxious and made suicidal comments. He has been placed under continuous supervision. He was placed in direct sight of the nurses station. Clothes and valuables were removed and placed at the nurses station. The ED physician has been notified. FALL RISK ASSESSMENT: Fall risk assessment completed. No fall risk identified. NUTRITIONAL RISK ASSESSMENT: The nutritional risk assessment revealed no deficiencies. FUNCTIONAL ASSESSMENT: Functional assessment performed: independent with the activities of daily living. LEARNING NEEDS ASSESSMENT: A learning needs assessment was performed. Factors affecting the patient's ability to learn include emotional barriers. SKIN INTEGRITY ASSESSMENT: Skin integrity risk assessment was performed. (Broken wrist). --16:22 John Connell R.N. ( When patient was asked if he had a plan to harm himself, he stated he would fill his prescription for his psych medication and "take all the pills" He stated "i can't take it anymore. I feel like I'm about to have a mental break."). --16:51 Melanie Hall R.N. Interventions ID band on patient. To treatment room. --16:22 John Connell R.N. PHYSICAL ASSESSMENT Ambulatory to room. GENERAL / NEURO / PSYCH: Alert. Oriented X 4. Appears anxious and in distress. Poor eye contact. Appears anxious ("feels hopeless"). He describes constant suicidal thoughts and has a specific plan (with access to the planned method). Prior history of suicidal thoughts. Continuous supervision provided and nurse present at the bedside. Patient has been placed in direct sight of the station. Clothes/valuables were removed and placed in the nurses station. ED physician was notified. RESPIRATORY: Respirations not labored. SKIN: Skin is warm and dry. Skin color is within normal limits. --16:24 John Connell R.N. 16:24 06/25/16. SKIN: ( Ortho splint in place to R wrist. Pt reports he broke his wrist. He is c/o pain.). --17:12 John Connell R.N. NURSING PROGRESS NOTES Patient gowned. Suicide precautions initiated: a safety sweep of the room is ongoing. Room made safe. Frequent one on one supervision, nurse at bedside, checks performed every 15 minutes, clothing / valuables removed and placed at the nurse's station. Patient placed in direct sight of the nurse's station. ED Physician has been notified. Two patient identifiers checked. Call light placed in reach. Bed placed in lowest position. Patient ready for evaluation- chart flagged and ED physician notified. --16:24 John Connell R.N. Time-out completed immediately before the procedure: verified identity of patient (name and birthdate). (ETOH breathylizer 0.00) --16:29 Melanie Hall R.N. ( Belongings moved to locker and lock was applied.). --16:36 John Connell R.N. ( Pt given water. Direct line of sight from Nurse's station.). --16:37 Melanie Hall R.N. 17:07 06/25/16. ( Placed a call to [facility] to request a mental health evaluation. Was told that Pt would have to be seen by [facility] before [facility] could send anyone to evaluate him d/t Pt's voluntary admission status and because [facility] is already following the Pt. Instructions were given that [facility] will be calling ED this evening.). --17:07 John Connell R.N. The patient is calm and resting quietly. Overall patient status is the same- he states feels the same. GENERAL / NEURO / PSYCH: The patient reports restlessness. Patient appears calm and cooperative. --17:22 John Connell R.N. Patient waiting for evaluation. --17:23 John Connell R.N. ( Direct line of sight from nurse's station. Pt. sleeping, arrousable.). --17:53 Melanie Hall R.N. ( pt belongings in locker #1). --18:12 Melanie Hall R.N. ( Return phone call from [facility]. Kiki explained that the patient was seen by him earlier today and they had developed a plan where the patient would machine pecan picker his medications, go home and sleep since he has been awake for 30+ hours. He was to follow up by phone with kiki tomorrow. After telling kiki of the circumstances that brought pt. to the ED, Kiki then stated he was going to write an affidavit of detainment and send it to [facility]. He asked if I could contact [facility] and tell them of this and ask for a CDMHP to be sent to the ED. [facility] was contacted, Carlita, mobility specialist. After speaking with Carlita, she stated that the patient does not meet criteria for CDP detainment as he is voluntary. She is going to call [facility] services, and discuss with him the case. one of them will be calling back the ED with the plan for the patient. At this time the patient is still sleeping. He is in direct line of sight from the nurse's station.). --18:26 Melanie Hall R.N. ( VOChong called to inform us that Diana from [facility] will be coming to assess Pt. ). --18:54 John Connell R.N. ( Pt is sleeping, direct line of sigh with nurse's station at this time, resting in room.). --18:55 John Connell R.N. ( PATTI MedinaMariana called. Will be on site approx 2029. Report to THUY Medina for end of shift coverage transfer of care.). --19:02 Melanie Hall R.N. 19:56 06/25/16. The patient is sleeping. RESPIRATORY: No respiratory distress. --19:56 Carol Park R.N. 20:54 Patient given sandwich and gatorade per request. --20:54 McQuoid, Kaitlin, ER Tech1 22:58 06/25/16. ( Xray at bedside, right wrist splint removed for films). --22:58 Carol Park R.N. 23:32 06/25/16. ( Spoke with Sandra from [facility] accept patient because he is wearing a splint on his right wrist. MD informed. Right wrist xrayed showing surgical pin in scaphoid bone, healing but not completely healed and will need to continue wearing splint. Due to need for splint on wrist, [facility] unable to accept patient as they would not be able to apply wrist restraints without possibly causing injury. [facility] Carol has informed me that Psych services will have to walk away and likely wait until tomorrow to have patient placed. Per MD, patient will not be released as he is an eminent threat to his own safety.). --23:32 Carol Park R.N. 00:38 06/26/16. ( Will be holding patient overnight for re-eval for psych placement in the morning. Patient given sandwich and milk per request. Patient voices no complaints.). --00:38 Carol Park R.N. ( Consulting tele-psyche). --02:25 Carol Park R.N. 03:52 Tele-Psych evaluation in process. --03:53 Helga Guevara R.N. 04:12 06/26/16. BP: 120/66. HR: 60. RR: 14. O2 saturation: 100%. Temp: 98.4 F. --04:12 Jose Luis Junior, ER Tech1 05:19 06/26/16. The patient reports no complaints and he is calm and resting quietly. --05:19 Carol Park R.N. Medication list and dosages obtained from [facility]. --05:56 McKaitlin Alcocer, ER Tech1 06:28 06/26/2016 -- (Mirtazapine 7.5 mg PO daily) was refused by patient because of pt said he refused to take the med. "my medication works just fine, I refuse to take this. ". Braden Mosqueda --06:28 Braden Mosqueda R.N. Care transferred and report received. --07:20 Cook, John, R.N. Call light placed in reach. Bed placed in lowest position. ( Pt resting in room, direct line of sight with nurse's station.). --07:56 John Connell R.N. ( Patient still resting, line of sight with nurse's station, performing frequent safety checks.). --08:29 John Connell R.N. ( Pt. within direct line of sight of nursing station. Still sleeping. Breakfast ordered.). --08:58 Melanie Hall R.N. ( Pt is awake in his room, asking what the plan is. Pt is relaxed, cooperative, line of sight with nurse's station.). --11:16 John Connell R.N. ( [facility] called to determine the need for a secondary request for eval from [facility] to attempt to find placement for Pt. Will call back with ETA.). --11:37 John Connell R.N. Two patient identifiers checked. Call light placed in reach. Bed placed in lowest position. ( Pt up to restroom and escorted back to his room. Checked VS.). --12:25 John Connell R.N. 12:25 06/26/16. BP: 115/62. HR: 61. RR: 16. O2 saturation: 100% on room air. Temp: 97.7 F. Pain level now: 05/20. --12:26 John Connell R.N. ( Pt voiced that "I do not want to be here." When asked if he wanted help he said "no and I never did. My dad made me come here yesterday." Pt would not answer when asked if he leaves here that he plans to harm himself. He asked staff to leave him alone right now. Direct line of sight with nurse's station. Monitoring.). --12:29 John Connell R.N. ( CDMHP at nurse's station). --13:05 Melanie Hall R.N. ( Pt resting in room. Direct line of sight with nurse's station.). --13:32 John Connell R.N. ( Pt awake, lying down in his room. No needs at this time. Informed Tech that he plans to stay. CDMHP work in progress.). --14:02 John Connell R.N. ( Pt. was seen eloping from rm. 13. Two nurses, one tech and security followed the patient to [facility] . 911 was called, police given a description of patient. they will attempt to locate and bring patient back.). --15:25 Melanie Hall R.N. ( Patient brought back by police.). --15:34 Melanie Hall R.N. ( Pt awake in room, direct line of sight with nurse's station, waiting for food from [facility].). --16:17 John Connell R.N. ( Patient now resting quietly. Ate 100% of burger and fries, states he is much more relaxed and not as restless as before. Direct line of sight from nurse's station). --16:21 Melanie Hall R.N. ( Awaiting call back from [facility] to provide Pt with a soft splint for his wrist. Pt is stable, resting in his room, Pt is directly visualized from nurse's station.). --16:45 John Connell R.N. ( Nurse to nurse report to [facility] [phone].). --17:27 Melanie Hall R.N. ( Received report from Melanie. Pt is awaiting [facility] for transport to [facility].). --19:03 Braden Mosqueda R.N. 19:06 06/26/2016 Ativan (LORazepam) PO Tablets 1 mg given. Allergies verified, confirmed 5 rights and sedative warning given to the patient. --19:06 John Connell R.N. ( Report to Braden RN for end of shift coverage.). --19:08 Melanie Hall R.N. ( Pt was explained about A policy for involuntary having to have restraints placed. Pt did not want his vs taken again, but was calm. Pt ambulated to the stretcher with no assistance and was placed in restraints. Pt showed no signs of distress. Pt was alert and oriented x 4. NWA was given the chart. Report was given to the EMT. Pt belongings were given the EMT taking report and placed on the stretcher.). --19:37 Braden Mosqueda R.N. DISPOSITION / DISCHARGE Report was given. Report included patient's care, treatment, medications, reviewed medication reconcilliation, and condition (including any recent changes or anticipated changes). All questions were answered. Report was acknowledged. (Report called to THUY López, at [facility]). --17:56 Melanie Hall R.N. Departure time: 19:37. Transferred to [facility] ([facility] 19:38). --19:38 Braden Mosqueda R.N. Locked/Released at 06/26/2016 19:39 by Braden Mosqueda R.N.
--- NOTE | 2016-06-26 17:10 | ED ORDER SUMMARY ---
..... Patient: JESSIE MEDINA OrderSheet [facility] VisitID: [id number] [address] [place] [address] 30y, M Registration Date/Time: 06/25/2016 ORDER SHEET Weight: 89.8 kg (stated) Allergies: Acetaminophen GENERAL ORDERS: Urine Drug Screen Urgent (16:26 06/25/2016 SStone R.N. per protocol) (Ack 16:27 SStone R.N.) (16:28 MCook R.N.) POC Breathalyzer (16:27 06/25/2016 SStone R.N. per protocol) (Ack 16:27 SStone R.N.) (16:28 MCook R.N.) - (call ESW) (16:50 06/25/2016 Romi HOFFMANN) (16:52 MCook R.N.) CBC w Diff Urgent (20:38 06/25/2016 Romi HOFFMANN) (Ack 20:40 AMcQuoid ER Tech1) (Sent 20:53 AMcQuoid ER Tech1) (20:55 AMcQuoid ER Tech1) CMP Urgent (20:38 06/25/2016 Romi HOFFMANN) (Ack 20:40 AMcQuoid ER Tech1) (Sent 20:53 AMcQuoid ER Tech1) (20:55 AMcQuoid ER Tech1) UA-Culture if indicated Urgent (20:38 06/25/2016 Romi HOFFMANN) (Ack 20:40 AMcQuoid ER Tech1) (Sent 20:53 AMcQuoid ER Tech1) (20:55 AMcQuoid ER Tech1) Wrist 3 or 4V Right Urgent (22:38 06/25/2016 Edy Garcia) (Ack 22:40 AMcQuoid ER Tech1) (22:59 AMcQuoid ER Tech1) Consult - Psych (telepsych) (00:46 06/26/2016 Edy Garcia) (Ack 3:03 AMcQuoid ER Tech1) (4:35 EInderbitzen R.N.) - (Contact patient's pharmacy to verify medications. Notify doc with meds and dosage.) (05:09 06/26/2016 Edy Garcia) (Ack 5:13 AMcQuoid ER Tech1) (5:21 AMcQuoid ER Tech1) [place] Urgent (05:46 06/26/2016 Edy Garcia) (5:48 AMcQuoid ER Tech1) MEDICATION ORDERS: Ibuprofen PO 600 mg (NOW) (17:29 06/25/2016 Romi HOFFMANN) (Cancelled: Patient Yutvnfv03:09 EInderbitzen R.N.) - (Lurasidone 80 mg PO daily) (05:44 06/26/2016 dEy Garcia) (Ack 10:36 [facility]) -- (Mirtazapine 7.5 mg PO daily) (05:45 06/26/2016 Edy Garcia) (6:28 TLewimatt R.N.) --- (Trileptal 300 mg BID) (05:45 06/26/2016 Edy Garcia) (Ack 10:36 [facility]) Ativan PO 1 mg (HIGH ALERT MEDICATION, NOW) (18:59 06/26/2016 Carlos HOFFMANN) (19:06 Anna R.N.) IV FLUIDS: ORDER SHEET NOTES: [Electronically signed by Braden Mosqueda R.N. (19:39 06/26/2016)] [Electronically signed by Power Sprague MD (21:05 06/26/2016)] [Electronically locked/signed by Braden Mosqueda R.N. (19:39 06/26/2016)]
--- NOTE | 2016-06-26 21:05 | ED MED RECONCILIATION SUMMARY ---
Patient: JESSIE MEDINA Medication Reconciliation Report [facility] VisitID: [id number] [address] [place] [address] 30y, M Registration Date/Time: 06/25/2016 Weight: 89.8 kg Height/Length: 63 in. BMI: 35.1 ALLERGIES: Acetaminophen The patient's Home Medications are listed below: THE FOLLOWING MEDICATIONS NEED TO BE RECONCILED: Gabapentin Oral HydrOXYzine HCl Oral Latuda Oral Trileptal Oral The source(s) of the original Home Medication information: Not obtained. The following Medications were given to the patient in the Emergency Department: Ativan [PO] PO 1 mg, administered: 06/26/2016 7:06:00 PM The following Medications were prescribed to the patient: None.
--- NOTE | 2016-06-26 21:05 | ED DISCHARGE INSTRUCTIONS ---
Patient: JESSIE MEDINA General Instructions [facility] VisitID: [id number] [address] [place] [address] 30y, M Registration Date/Time: 06/25/2016 Suicidal ideation. (Electronically signed by Power Sprague MD 06/26/2016 21:05)
--- NOTE | 2016-06-26 21:05 | ED MED RECONCILIATION SUMMARY ---
Patient: JESSIE MEDINA Medication Reconciliation Report [facility] VisitID: [id number] [address] [place] [address] 30y, M Registration Date/Time: 06/25/2016 Weight: 89.8 kg Height/Length: 63 in. BMI: 35.1 ALLERGIES: Acetaminophen The patient's Home Medications are listed below: THE FOLLOWING MEDICATIONS NEED TO BE RECONCILED: Gabapentin Oral HydrOXYzine HCl Oral Latuda Oral Trileptal Oral The source(s) of the original Home Medication information: Not obtained. The following Medications were given to the patient in the Emergency Department: Ativan [PO] PO 1 mg, administered: 06/26/2016 7:06:00 PM The following Medications were prescribed to the patient: None.
--- NOTE | 2016-06-26 21:05 | ED DISCHARGE INSTRUCTIONS ---
Patient: JESSIE MEDINA General Instructions [facility] VisitID: [id number] [address] [place] [address] 30y, M Registration Date/Time: 06/25/2016 Suicidal ideation. (Electronically signed by Power Sprague MD 06/26/2016 21:05)
--- NOTE | 2016-06-26 21:05 | ED MAR SUMMARY ---
..... Medication Administration Record [facility] [address] [place] [address] Patient: JESSIE MEDINA Visit ID: [id number] 30y, M Weight: 89.8 kg Height/Length: 63 in BMI: 35.1 ALLERGIES: Acetaminophen Given 19:06 06/26/2016 John Connell R.N. Medication Administered: ATIVAN [PO] (LORAZEPAM), Dose: 1 mg Tablets PO. Medication Ordered: Ativan PO 1 mg (HIGH ALERT MEDICATION, NOW).
--- NOTE | 2016-06-26 21:05 | ED MAR SUMMARY ---
..... Medication Administration Record [facility] [address] [place] [address] Patient: JESSIE MEDINA Visit ID: [id number] 30y, M Weight: 89.8 kg Height/Length: 63 in BMI: 35.1 ALLERGIES: Acetaminophen Given 19:06 06/26/2016 John Connell R.N. Medication Administered: ATIVAN [PO] (LORAZEPAM), Dose: 1 mg Tablets PO. Medication Ordered: Ativan PO 1 mg (HIGH ALERT MEDICATION, NOW).
== END ==
LOC: ED SRH 16:05
DX: R45.851 Suicidal ideations (principal); S62.91XD Unspecified fracture of right hand, subsequent encounter for fracture with routine healing; W22.09XD Striking against other stationary object, subsequent encounter; Z91.5 Personal history of self-harm

== ENCOUNTER 2016-11-15 23:28 | Emergency (ER) | payer OTHER ==
--- NOTE | 2016-11-16 06:58 | ED ORDER SUMMARY ---
..... Patient: JESSIE MEDINA OrderSheet [facility] VisitID: [id number] [place] [address] 31y, M Registration Date/Time: 11/15/2016 ORDER SHEET Weight: 81.6 kg (stated) Allergies: Acetaminophen GENERAL ORDERS: CBC w Diff Urgent (23:11/15/2016 Edy Garcia) (Ack 23:40 CHagerty ER Filling Carrier) (0:19 CBradburn R.N.) CMP Urgent (23:11/15/2016 Edy Garcia) (Ack 23:40 CHagerty ER Filling Carrier) (0:19 CBradburn R.N.) UA-Culture if indicated Urgent (:11/15/2016 Edy Garcia) (Ack 23:40 CHagerty ER Filling Carrier) (0:19 CBradburn R.N.) PT with INR Urgent (:11/15/2016 Edy Garcia) (Ack 23:40 CHagerty ER Filling Carrier) (0:19 CBradburn R.N.) Urine Drug Screen Urgent (23:11/15/2016 Edy Garcia) (Ack 23:40 CHagerty ER Filling Carrier) (0:19 CBradburn R.N.) Acetaminophen Level Urgent (23:11/15/2016 Edy Garcia) (Ack 23:40 CHagerty ER Filling Carrier) (0:19 CBradburn R.N.) Salicylate Level Urgent (23:11/15/2016 Edy Garcia) (Ack 23:40 CHagerty ER Filling Carrier) (0:19 CBradburn R.N.) Breathalyzer (23:11/15/2016 Edy Garcia) (Ack 23:40 CHagerty ER Filling Carrier) (0:53 CBradburn R.N.) MEDICATION ORDERS: IV FLUIDS: ORDER SHEET NOTES: [Electronically signed by Vanesa Yates R.N. (14:06 11/16/2016)] [Electronically signed by Tapan Valdez Dr. (06:01 11/18/2016)] [Electronically locked/signed by Vanesa Yates R.N. (14:06 11/16/2016)Duong
--- NOTE | 2016-11-16 06:58 | ED CLINICAL REPORT ---
Clinical Report - Physicians/Mid Levels [facility] [address] [place] [address] 11/15/2016 23:30 Patient: JESSIE MEDINA Time Seen: 2333; initial patient contact. Arrived- By ambulance. Historian- patient and EMS personnel. Referred (self). HISTORY OF PRESENT ILLNESS Chief Complaint: DEPRESSED and SUICIDAL THOUGHTS. This started today. The patient has experienced situational problems (family). No recent alcohol consumption. Has been depressed and had suicidal thoughts. The symptoms are described as severe. No injury is present. Additional history - tried talking with counselors but has not been able to contact them. Similar symptoms previously: None. Recent medical care: Not recently seen/assessed. REVIEW OF SYSTEMS No headache, weakness, chest pain, abdominal pain or vomiting. No diarrhea, black stools, numbness, fever or difficulty breathing. All systems otherwise negative, except as recorded above. PAST HISTORY See nurses notes. Medications: HydrOXYzine HCl Oral 50 mg, 3x a day as needed. Gabapentin Oral (Capsule 300 mg) 2 capsules, 3x a day. SEROquel Oral (Tablet 100 mg) 1 tablet, at bedtime. Latuda Oral (Tablet 80 mg) 1 tablet, daily. Trileptal Oral (Tablet 300 mg) 1 tablet, 2x a day. Allergies: Acetaminophen. Definite Severe(nausea). SOCIAL HISTORY History of drug use. Is a recovering addict. No alcohol use. Has social support. ADDITIONAL NOTES The nursing notes have been reviewed. PHYSICAL EXAM Vital Signs: 11/15/2016 23:33 BP: 114/70. HR: 62. RR: 18. O2 saturation: 98%. Temp: 97.9 F. Pain level now: 3/10. Blood pressure normal. Oxygen saturation normal. Appearance: Alert. No acute distress. (pleasant, cooperative, polite.). Eyes: Pupils equal, round and reactive to light. Neck: Normal inspection. Neck supple. No meningeal signs. CVS: Normal heart rate and rhythm. Heart sounds normal. Respiratory: Breath sounds normal. Chest nontender. Abdomen: Soft and nontender. Skin: Skin warm and dry. Normal skin color. Normal skin turgor. Extremities: Extremities exhibit normal ROM. No lower extremity edema. Psych / Neuro: Oriented X 3. Appears depressed. (affect congruent). Speech normal. Cognition normal. Thought process and content normal. Insight and judgement normal. Cranial nerves normal (as tested). No cerebellar findings. No motor deficit. LABS, X-RAYS, AND EKG Laboratory Tests: UA-Culture if indicated: (DANI: 11/16/2016 00:13) ( [facility] 11/16/2016 00:31) Final results Test Result Flag Units (Reference) URINE COLOR YELLOW URINE APPEARANCE CLEAR URINE GLUCOSE NEGATIVE (NEGATIVE) URINE BILIRUBIN NEGATIVE (NEGATIVE) URINE KETONE NEGATIVE (NEGATIVE) URINE SPECIFIC GRAVITY 1.025 (1.010-1.030) URINE PH 6.0 (5.0-8.0) URINE PROTEIN NEGATIVE (NEGATIVE) URINE UROBILINOGEN 0.2 EU/dL (0.2-1.0) URINE NITRITE NEGATIVE (NEGATIVE) URINE BLOOD NEGATIVE (NEGATIVE) URINE LEUK ESTERASE NEGATIVE (NEGATIVE) URINE RBC 0-1 rbc/hpf (0-1) URINE WBC 0-1 wbc/hpf (0-1) URINE EPITHELIAL CELLS 0-1 EPI/hpf (0-5) URINE BACTERIA NONE SEEN (NONE SEEN) URINE COMMENT CULT NOT INDICATED URINE CULTURES ARE SET-UP BASED ON THE FOLLOWING CRITERIA:POSITIVE NITRITEPOSITIVE LEUKOCYTE ESTERASEGREATER THAN 10 WHITE BLOOD CELLSMODERATE (2+) OR GREATER BACTERIA CBC w Diff: (DANI: 11/16/2016 00:13) ( [facility] [place] 11/16/2016 00:27) Final results Test Result Flag Units (Reference) WHITE BLOOD COUNT 6.8 K/uL (4.5-11.5) RED BLOOD COUNT 4.68 M/uL (4.50-5.90) HEMOGLOBIN 14.0 gm/dL (13.5-17.5) HEMATOCRIT 41.0 % (41.0-53.0) MEAN CELL VOLUME 88 fL (80-100) MEAN CORPUSCULAR HGB 30 pg (26-34) MEAN CORPUSCULAR HGB CONC 34 g/dL (31-37) RED CELL DISTRIBUTION WIDTH 13.4 % (11.6-14.8) PLATELET COUNT 215 K/uL (150-400) NEUTROPHIL % 45.8 L % (50-75) LYMPH % 43.2 H % (25-40) MONO % 8.9 % (3-14) EOSINOPHIL % 1.7 % (0-4) BASOPHIL % 0.4 % (0-2) PT with INR: (DANI: 11/16/2016 00:13) ( MsgRcvd 11/16/2016 00:31) Final results Test Result Flag Units (Reference) INR 0.9 (0.8-1.2) Low Intensity Therapy: INR 1.5-2.0 PT range 18.5-23.1Mod.Intensity Therapy: INR 2.0-3.0 PT range 23.1-31.5High Intensity Therapy: INR 2.5-3.5 PT range 27.4-35.5High Intensity Therapy 2: INR 3.0-4.0 PT range 31.5-39.3 Urine Drug Screen: (DANI: 11/16/2016 00:13) ( MsgRcvd 11/16/2016 00:38) Final results Test Result Flag Units (Reference) AMPHETAMINE/METHAMPHETAMINE NEGATIVE (NEGATIVE) BARBITURATE NEGATIVE (NEGATIVE) BENZODIAZEPINE NEGATIVE (NEGATIVE) CANNABINOID NEGATIVE (NEGATIVE) COCAINE NEGATIVE (NEGATIVE) ECSTASY NEGATIVE (NEGATIVE) METHADONE NEGATIVE (NEGATIVE) OPIATE NEGATIVE (NEGATIVE) The urine drug screen is a qualitative screening test fordrug overdose and abuse. All screen results should beconsidered as presumptive.Drugs screened for are as follows:BenzodiazepinesCocaineAmphetamines/MetamphetaminesTHC (Tetrahydrocannabinol)OpiatesBarbituratesEcstasyMethadonePositive results are unconfirmed. For confirmation, notifythe lab for the specimen to be sent to the reference lab.All confirmations must be performed by a differentmethodology.The ingestion of natural herbal and plant productscontaining Ephedra/Ephedra metabolites can produce in urineone or more substances capable of cross reacting withamphetamine/methamphetamine immunoassays. These testsprovide a preliminary result only. A more specificalternative chemical method must be used to obtain aconfirmed analytical result. Salicylate Level: (DANI: 11/16/2016 00:13) ( MsgRcvd 11/16/2016 00:33) Final results Test Result Flag Units (Reference) SALICYLATE <2.8 L mg/dL (2.8-20) CMP: (DANI: 11/16/2016 00:13) ( MsgRcvd 11/16/2016 00:43) Final results Test Result Flag Units (Reference) GLUCOSE 85 mg/dL (70-110) BUN 20 H mg/dL (7-18) CREATININE 1.0 mg/dL (0.6-1.3) Estimated GFR >60 mL/min Estimated GFR- >60 mL/min Note: Persistent reduction over 3 months in eGFR<60 mL/min/1.73 m2 defines CKD. Patients with eGFR values>=60 mL/min/1.73 m2 may also have CKD if evidence ofpersistent proteinuria. Additional information may be foundat www.kidney.org. SODIUM 141 mmol/L (136-145) POTASSIUM 4.1 mmol/L (3.5-5.1) CHLORIDE 106 mmol/L (98-107) CARBON DIOXIDE 29 mmol/L (21-32) CALCIUM 8.0 L mg/dL (8.5-10.1) TOTAL PROTEIN 6.9 g/dL (6.4-8.2) ALBUMIN 3.6 g/dL (3.3-5.0) BILIRUBIN, TOTAL 0.5 mg/dL (0.0-1.0) ALKALINE PHOSPHATASE 73 U/L (46-116) AST (SGOT) 32 U/L (15-37) ALT (SGPT) 76 U/L (12-78) ACETAMINOPHEN < 3 L ug/mL (10-30) . PROGRESS AND PROCEDURES Course of Care: the patient is a 31-year-old male presenting for evaluation of suicidal ideation. Patient without specific plan. No other concerns at this time. Patient has been appropriate and cooperative while here in the emergency department. No hallucinations or delusions. Workup ordered for medical clearance and ppsychiatric evaluation. Patient requesting something to drink while here in the emergency department. Patient was offered water, milk, juice, coffee, or tea. Patient states that he would like milk. Patient was seen by the crisis team. Patient is able to contract for safety. Was able to get patient outpatient resources and follow-up. Patient does not appear to be danger to self or others. Patient as been appropriate while here in the emergency department. Was able to arrange transfer of the patient in the morning. Patient will be managed as an outpatient. Patient reports feeling much better after his stay here in the emergency department. Patient is able to tolerate by mouth while here. Disposition: Discharged. Condition: good. CLINICAL IMPRESSION Adjustment disorder with depressed mood (acute). INSTRUCTIONS Warnings: GENERAL WARNINGS: Return or contact your physician immediately if your condition worsens or changes unexpectedly, if not improving as expected, or if other problems arise. Specifically return if pain, vomiting, bleeding, breathing difficulty or fever. symptoms return or other concerns. Your Current Medications: CONTINUE TAKING THE FOLLOWING MEDICATIONS: Gabapentin Oral : Capsule 300 mg, 2 capsules 3x a day. HydrOXYzine HCl Oral : 50 mg 3x a day, prn. Latuda Oral : Tablet 80 mg, 1 tablet daily. SEROquel Oral : Tablet 100 mg, 1 tablet at bedtime. Trileptal Oral : Tablet 300 mg, 1 tablet 2x a day. Follow-up: Return to the emergency department as needed. Follow up with your doctor as scheduled. Reason for referral: recheck today's concerns. Summary of care provided to patient via paper. Screening today revealed the patient's blood pressure to be in the normal range. The patient should follow up with a primary care provider for blood pressure management. Understanding of the discharge instructions verbalized by patient. (Electronically signed by Tapan Valdez Dr. 11/18/2016 6:01)
--- NOTE | 2016-11-16 06:58 | ED ORDER SUMMARY ---
..... Patient: JESSIE MEDINA OrderSheet [facility] VisitID: [id number] [place] [address] 31y, M Registration Date/Time: 11/15/2016 ORDER SHEET Weight: 81.6 kg (stated) Allergies: Acetaminophen GENERAL ORDERS: CBC w Diff Urgent (23:11/15/2016 Edy Garcia) (Ack 23:40 CHagerty ER Terrazzo Tile Setter) (0:19 CBradburn R.N.) CMP Urgent (23:11/15/2016 Edy Garcia) (Ack 23:40 CHagerty ER Terrazzo Tile Setter) (0:19 CBradburn R.N.) UA-Culture if indicated Urgent (:11/15/2016 Edy Garcia) (Ack 23:40 CHagerty ER Terrazzo Tile Setter) (0:19 CBradburn R.N.) PT with INR Urgent (:11/15/2016 Edy Garcia) (Ack 23:40 CHagerty ER Terrazzo Tile Setter) (0:19 CBradburn R.N.) Urine Drug Screen Urgent (23:11/15/2016 Edy Garcia) (Ack 23:40 CHagerty ER Terrazzo Tile Setter) (0:19 CBradburn R.N.) Acetaminophen Level Urgent (23:11/15/2016 Edy Garcia) (Ack 23:40 CHagerty ER Terrazzo Tile Setter) (0:19 CBradburn R.N.) Salicylate Level Urgent (23:11/15/2016 Edy Garcia) (Ack 23:40 CHagerty ER Terrazzo Tile Setter) (0:19 CBradburn R.N.) Breathalyzer (23:11/15/2016 Edy Garcia) (Ack 23:40 CHagerty ER Terrazzo Tile Setter) (0:53 CBradburn R.N.) MEDICATION ORDERS: IV FLUIDS: ORDER SHEET NOTES: [Electronically signed by Vanesa Yates R.N. (14:06 11/16/2016)] [Electronically signed by Tapan Valdez Dr. (06:01 11/18/2016)] [Electronically locked/signed by Vanesa Yates R.N. (14:06 11/16/2016)Duong
--- NOTE | 2016-11-16 06:58 | ED NURSING NOTES ---
Clinical Report - Nurses [facility] [address] [place] [address] 11/15/2016 23:30 Patient: JESSIE MEDINA TRIAGE Triage time 23:34. Acuity: LEVEL 2. Chief Complaint: DEPRESSION and SUICIDAL THOUGHTS. --23:45 Francheska Romero R.N. 23:33 11/15/16. BP: 114/70 taken on the left arm, while lying. HR: 62 (regular and normal rate). RR: 18 (regular and unlabored). O2 saturation: 98% on room air. Temp: 97.9 F (oral). Pain level now: 07/18. --23:45 Francheska Romero R.N. Weight: 81.6 kg stated. Height/Length: 63 inches Per Patient. BMI: 31.9. --23:37 Francheska Romero R.N. Medications Trileptal Oral (Tablet 300 mg) 1 tablet, 2x a day. --23:40 Francheska Romero R.N. Latuda Oral (Tablet 80 mg) 1 tablet, daily. --23:40 Francheska Romero R.N. SEROquel Oral (Tablet 100 mg) 1 tablet, at bedtime. --23:41 Francheska Romero R.N. Gabapentin Oral (Capsule 300 mg) 2 capsules, 3x a day. --23:42 Francheska Romero R.N. HydrOXYzine HCl Oral 50 mg, 3x a day as needed. --23:43 Francheska Romero R.N. Allergies Acetaminophen. Definite Severe(nausea) --23:42 Francheska Romero R.N. History Arrived by EMS. Historian: patient. Unaccompanied. Primary physician ([facility]). Onset: today. ( stressed arguing with dad does not feel like anyone appreciates him, states has been taking med , pt hx of SI felt like driving car into a tree tonight). He describes feelings of depression. Treatment MRI SPECIAL PROCEDURES TECHNOLOGIST: None. PAST MEDICAL HX: Immunizations: up-to-date. SOCIAL HX: Smoker- current status unknown. History of drug use. Is a recovering addict. (about 1 years ago). No alcohol use. No infectious disease exposure. ABUSE ASSESSMENT: No report of abuse. SELF HARM ASSESSMENT: A self harm assessment was performed. The patient answered "yes" to the question "Have you recently felt down, depressed, or hopeless?", "Have you noticed less interest or pleasure in doing things?", "Do you have thoughts of harming or killing yourself?" and "Have you ever tried to hurt yourself before today?" and "no" to the question "Are you here because you tried to hurt yourself?", "Have you recently had thoughts about harming or killing others?" and "Do you have any dangerous items in your possession?". The patient reports their behavior included suicidal comments and as withdrawn. In the ED the patient has made suicidal comments. A further in-depth assessment is planned. He has been placed under frequent supervision. He was placed in direct sight of the nurses station. The ED physician has been notified. FALL RISK ASSESSMENT: Fall risk assessment completed. No fall risk identified. NUTRITIONAL RISK ASSESSMENT: The nutritional risk assessment revealed no deficiencies. FUNCTIONAL ASSESSMENT: Functional assessment: no impairments noted. LEARNING NEEDS ASSESSMENT: The learning needs assessment revealed no barriers. SKIN INTEGRITY ASSESSMENT: Skin integrity risk assessment completed. No skin integrity risk identified. SUICIDE RISK ASSESSMENT (SAD PERSONS score): SADPERSONS Score: 6. The patient is male and less than 19 or greater than 45 years old, reports history of depression, has made previous suicide attempts, has no social support and has an organized plan for suicide. --23:45 Francheska Romero R.N. PROBLEMS: Heart Disease. Suicide Attempt. Suicidal Ideation. Hx of cutting. PTSD. Bipolar Disorder. Depression. Mental Illness. Hypertension. Facial Fracture. Head Injury. Contusion. Fall. --23:43 Francheska Romero R.N. ADDITIONAL SURGERIES: Echocardiography. Wrist. --23:43 Francheska Romero R.N. Interventions To treatment room. --23:45 Francheska Romero R.N. PHYSICAL ASSESSMENT To room via stretcher. GENERAL / NEURO / PSYCH: Alert. Oriented X 4. Appears in no acute distress. Speech within normal limits. Patient's mood/affect appears flat. Patient appears calm and cooperative. Good eye contact. He describes suicidal thoughts and has a specific plan (with access to the planned method). Prior history of suicidal thoughts. Frequent supervision provided. Patient has been placed in direct sight of the station. Clothes/valuables were removed and placed in the safe. ED physician was notified (for 1 days). Patient appears well-nourished and neat and clean. RESPIRATORY: Respirations not labored. Breath sounds within normal limits. CVS: Normal heart rate and rhythm. Capillary refill less than 2 seconds. GI / : Abdomen soft and nontender. Bowel sounds within normal limits. SKIN: Skin intact. Skin is warm and dry. Skin color is within normal limits. --23:46 Francheska Romero R.N. NURSING PROGRESS NOTES Patient ready for evaluation- chart flagged. --23:46 Francheska Romero R.N. Patient gowned. Suicide precautions maintained: a safety sweep of the room has been completed. Room made safe. Frequent one on one supervision, clothing / valuables removed and placed in the safe. Patient placed in direct sight of the nurse's station. ED Physician has been notified. --23:47 Francheska Romero R.N. Patient ID band checked for patient name and birthdate: patient confirmed. Blood samples drawn with Vacutainer and 23g butterfly by nurse per protocol ; labeled in presence of the patient and sent to lab: rainbow set. Suicide precautions maintained. Patient placed in direct sight of the nurse's station. Call light placed in reach. --00:20 Francheska Romero R.N. Patient ID band checked for patient name and birthdate: patient confirmed. Instructions provided to collect clean catch urine and patient verbalized understanding. Clean catch urine collected with return of yellow-colored clear urine; sample sent to lab for urinalysis. Specimen labeled in the presence of the patient. --00:21 Francheska Romero R.N. Suicide precautions maintained. Frequent one on one supervision. Patient placed in direct sight of the nurse's station. ( breathalyzer 0.000, pt resting quietly no distress, calm and coop, will continue to monitor). --00:53 Heather, Francehska, R.N. 02:00. Suicide precautions maintained: a safety sweep of the room is ongoing. The patient reports no complaints and he is sleeping. ( pt resting quietly, no distress noted. will continue to monitor). GENERAL / NEURO / PSYCH: Patient appears calm and cooperative. Affect appears normal. --04:14 Francheska Romero R.N. The patient reports no complaints and he is calm. Overall patient status is improved- he states feels better. ( pt denies SI/HI at this time, waiting for ride home, cleared for D/C by PAT with follow up. will continue to monitor until DC.). --06:55 Francheska Romero R.N. 06:53 11/16/16. BP: 101/55 taken on the left arm, while lying. HR: 73 (regular and normal rate). RR: 18 (regular and unlabored). O2 saturation: 98% on room air. Temp: deferred. Pain level now: 0/10. --06:55 Francheska Romero R.N. DISPOSITION / DISCHARGE Departure time: 08:20 Nov 16 2016. Condition at departure: improved. No learning barriers present. Discharge instructions provided and reviewed with the patient. Reviewed warnings. Reviewed medication(s). Treatments reviewed. Reviewed referrals. Follow up contact number crisis line. Patient verbalized understanding. Written instructions provided in [employer]. The patient was discharged home. He left the Emergency Department ambulatory and via ([employer]). --08:28 Vanesa Yates R.N. 06:53 11/16/16. BP: 101/55 taken on the left arm, while lying. HR: 73 (regular and normal rate). RR: 18 (regular and unlabored). O2 saturation: 98% on room air. Temp: deferred. Pain level now: 0/10. --08:28 Vanesa Yates R.N. Locked/Released at 11/16/2016 14:06 by Vanesa Yates R.N.
--- NOTE | 2016-11-18 06:01 | ED DISCHARGE INSTRUCTIONS ---
Patient: JESSIE MEDINA General Instructions [facility] VisitID: [id number] [place] [address] 31y, M Registration Date/Time: 11/15/2016 Adjustment disorder with depressed mood (acute). INSTRUCTIONS Warnings: GENERAL WARNINGS: Return or contact your physician immediately if your condition worsens or changes unexpectedly, if not improving as expected, or if other problems arise. Specifically return if pain, vomiting, bleeding, breathing difficulty or fever. symptoms return or other concerns. Your Current Medications: CONTINUE TAKING THE FOLLOWING MEDICATIONS: Gabapentin Oral : Capsule 300 mg, 2 capsules 3x a day. HydrOXYzine HCl Oral : 50 mg 3x a day, prn. Latuda Oral : Tablet 80 mg, 1 tablet daily. SEROquel Oral : Tablet 100 mg, 1 tablet at bedtime. Trileptal Oral : Tablet 300 mg, 1 tablet 2x a day. Follow-up: Return to the emergency department as needed. Follow up with your doctor as scheduled. Reason for referral: recheck today's concerns. Summary of care provided to patient via paper. Screening today revealed the patient's blood pressure to be in the normal range. The patient should follow up with a primary care provider for blood pressure management. Understanding of the discharge instructions verbalized by patient. ADDITIONAL INFORMATION Adjustment Disorder An adjustment disorder is a condition that results from having a hard time coping with the normal stresses of life. You may feel you have too much to do and cant get it all done. These feelings may be triggered by divorce, job loss, someone you know dying, or by a positive event like getting a new job or getting . These feelings may interfere with your relationships at home and at work. With this condition, it is common to feel sad, guilty, hopeless and restless. These feelings may continue for weeks or months. It can be helpful to identify what is causing the additional stress and takes steps to get extra support. If new stressful events do not occur, it is likely that you will start feeling better within six months. Home Care: If you have been given a prescription for medicine, take it as directed. It helps to talk about your feelings and thoughts with family or friends that understand and support you. Follow Up with your doctor or therapist as advised by our staff. Let them know if this condition lasts more than six months without sign of improvement. For more information, contact the National [place] on Mental Illness at 845-474-5452 or visit www.ihsan.org. Get Prompt Medical Attention if any of the following occur: Worsening depression or anxiety Feeling out of control Thoughts of harming yourself or another Being unable to care for yourself You have been given the following additional information: Adjustment Disorder (Electronically signed by Tapan Valdez Dr. 11/18/2016 6:01)
--- NOTE | 2016-11-18 06:01 | ED MAR SUMMARY ---
..... Medication Administration Record [facility] [address] [place], [place] [id number] Patient: JESSIE MEDINA Visit ID: [id number] 31y, M Weight: 81.6 kg Height/Length: 63 in BMI: 31.9 ALLERGIES: Acetaminophen
--- NOTE | 2016-11-18 06:01 | ED MED RECONCILIATION SUMMARY ---
Patient: JESSIE MEDINA Medication Reconciliation Report [facility] VisitID: [id number] [address] [place] [address] 31y, M Registration Date/Time: 11/15/2016 Weight: 81.6 kg Height/Length: 63 in. BMI: 31.9 ALLERGIES: Acetaminophen The patient's Home Medications are listed below: CONTINUE TAKING THE FOLLOWING MEDICATIONS: Gabapentin Oral (300 mg) 2 capsules, 3x a day HydrOXYzine HCl Oral 50 mg, 3x a day Latuda Oral (80 mg) 1 tablet, daily SEROquel Oral (100 mg) 1 tablet, at bedtime Trileptal Oral (300 mg) 1 tablet, 2x a day The source(s) of the original Home Medication information: Not obtained. The following Medications were given to the patient in the Emergency Department: None. The following Medications were prescribed to the patient: None.
--- NOTE | 2016-11-18 06:01 | ED MED RECONCILIATION SUMMARY ---
Patient: JESSIE MEDINA Medication Reconciliation Report [facility] VisitID: [id number] [address] [place] [address] 31y, M Registration Date/Time: 11/15/2016 Weight: 81.6 kg Height/Length: 63 in. BMI: 31.9 ALLERGIES: Acetaminophen The patient's Home Medications are listed below: CONTINUE TAKING THE FOLLOWING MEDICATIONS: Gabapentin Oral (300 mg) 2 capsules, 3x a day HydrOXYzine HCl Oral 50 mg, 3x a day Latuda Oral (80 mg) 1 tablet, daily SEROquel Oral (100 mg) 1 tablet, at bedtime Trileptal Oral (300 mg) 1 tablet, 2x a day The source(s) of the original Home Medication information: Not obtained. The following Medications were given to the patient in the Emergency Department: None. The following Medications were prescribed to the patient: None.
--- NOTE | 2016-11-18 06:01 | ED MAR SUMMARY ---
..... Medication Administration Record [facility] [address] [place], [place] [id number] Patient: JESSIE MEDINA Visit ID: [id number] 31y, M Weight: 81.6 kg Height/Length: 63 in BMI: 31.9 ALLERGIES: Acetaminophen
--- NOTE | 2016-11-18 06:01 | ED DISCHARGE INSTRUCTIONS ---
Patient: JESSIE MEDINA General Instructions [facility] VisitID: [id number] [place] [address] 31y, M Registration Date/Time: 11/15/2016 Adjustment disorder with depressed mood (acute). INSTRUCTIONS Warnings: GENERAL WARNINGS: Return or contact your physician immediately if your condition worsens or changes unexpectedly, if not improving as expected, or if other problems arise. Specifically return if pain, vomiting, bleeding, breathing difficulty or fever. symptoms return or other concerns. Your Current Medications: CONTINUE TAKING THE FOLLOWING MEDICATIONS: Gabapentin Oral : Capsule 300 mg, 2 capsules 3x a day. HydrOXYzine HCl Oral : 50 mg 3x a day, prn. Latuda Oral : Tablet 80 mg, 1 tablet daily. SEROquel Oral : Tablet 100 mg, 1 tablet at bedtime. Trileptal Oral : Tablet 300 mg, 1 tablet 2x a day. Follow-up: Return to the emergency department as needed. Follow up with your doctor as scheduled. Reason for referral: recheck today's concerns. Summary of care provided to patient via paper. Screening today revealed the patient's blood pressure to be in the normal range. The patient should follow up with a primary care provider for blood pressure management. Understanding of the discharge instructions verbalized by patient. ADDITIONAL INFORMATION Adjustment Disorder An adjustment disorder is a condition that results from having a hard time coping with the normal stresses of life. You may feel you have too much to do and cant get it all done. These feelings may be triggered by divorce, job loss, someone you know dying, or by a positive event like getting a new job or getting . These feelings may interfere with your relationships at home and at work. With this condition, it is common to feel sad, guilty, hopeless and restless. These feelings may continue for weeks or months. It can be helpful to identify what is causing the additional stress and takes steps to get extra support. If new stressful events do not occur, it is likely that you will start feeling better within six months. Home Care: If you have been given a prescription for medicine, take it as directed. It helps to talk about your feelings and thoughts with family or friends that understand and support you. Follow Up with your doctor or therapist as advised by our staff. Let them know if this condition lasts more than six months without sign of improvement. For more information, contact the [employer] at 464-242-9335 or visit www.ihsan.org. Get Prompt Medical Attention if any of the following occur: Worsening depression or anxiety Feeling out of control Thoughts of harming yourself or another Being unable to care for yourself You have been given the following additional information: Adjustment Disorder (Electronically signed by Tapan Valdez Dr. 11/18/2016 6:01)
== END 2016-11-16 08:20 | disposition home or self-care (01) ==
LOC: ED SRH 23:28
DX: F43.21 Adjustment disorder with depressed mood (principal); R45.851 Suicidal ideations; Z87.898 Personal history of other specified conditions; Z79.899 Other long term (current) drug therapy; Z88.6 Allergy status to analgesic agent
CPT/HCPCS: 90004; 90074; 90100; 92760; 92761; 92762; 92763; 92764; 92765; 92766; 92767; 92780; 94060; 95059; 97000

== ENCOUNTER 2016-11-16 18:56 | Emergency (ER) | payer OTHER ==
--- NOTE | 2016-11-17 02:48 | ED ORDER SUMMARY ---
..... Patient: JESSIE MEDINA OrderSheet [facility] VisitID: [id number] [place] [address] 31y, M Registration Date/Time: 11/16/2016 ORDER SHEET Weight: 77.1 kg (stated) Allergies: Acetaminophen GENERAL ORDERS: TSH Urgent (19:21 11/16/2016 EKoroleva P.A.-C) (Ack 19:30 CHagerty ER Blacksmith Supervisor) (20:01 SRoberts R.N.) Ethyl Alcohol Urgent (19:21 11/16/2016 EKoroleva P.A.-C) (Ack 19:30 CHagerty ER Blacksmith Supervisor) (20:01 SRoberts R.N.) Urine Drug Screen Urgent (19:11/16/2016 EKoroleva P.A.-C) (Ack 19:30 CHagerty ER Blacksmith Supervisor) (20:00 SRoberts R.N.) - (photo to document lacs please for chart) (19:31 11/16/2016 EKoroleva P.A.-C) (19:54 PWeiler ER Tech1) - (dressing, non adhesive/ bacitracin> gauze wrap to Left forearm) (23:36 11/16/2016 EKoroleva P.A.-C) (0:35 JQuivey R.N.) MEDICATION ORDERS: Tdap IM 0.5 mL (NOW, per protocol) (23:36 11/16/2016 EKoroleva P.A.-C) (Ack 0:00 JQuivey R.N.) (0:08 JQuivey R.N.) IV FLUIDS: Fentanyl IV 100 mcg (NOW) (20:03 11/16/2016 SRoberts R.N. verbal order read back to EKoroleva P.A.-C) (20:04 SRoberts R.N.) Toradol IV 30 mg (NOW) (20:03 11/16/2016 SRoberts R.N. verbal order read back to EKoroleva P.A.-C) (20:05 SRoberts R.N.) IV Saline Lock (20:11/16/2016 Yunior Weeks verbal order read back to Rayna White (20:04 Yunior Weeks) ORDER SHEET NOTES: [Electronically signed by Regulo Terry Dr. (05:48 11/17/2016)] [Electronically signed by Scooby Krishna R.N. (05:52 11/17/2016)] [Electronically locked/signed by Scooby Krishna R.N. (05:52 11/17/2016)]
--- NOTE | 2016-11-17 02:48 | ED ORDER SUMMARY ---
..... Patient: JESSIE MEDINA OrderSheet [facility] VisitID: [id number] [place] [address] 31y, M Registration Date/Time: 11/16/2016 ORDER SHEET Weight: 77.1 kg (stated) Allergies: Acetaminophen GENERAL ORDERS: TSH Urgent (19:21 11/16/2016 EKoroleva P.A.-C) (Ack 19:30 CHagerty ER Train Brake Operator) (20:01 SRoberts R.N.) Ethyl Alcohol Urgent (19:21 11/16/2016 EKoroleva P.A.-C) (Ack 19:30 CHagerty ER Train Brake Operator) (20:01 SRoberts R.N.) Urine Drug Screen Urgent (19:11/16/2016 EKoroleva P.A.-C) (Ack 19:30 CHagerty ER Train Brake Operator) (20:00 SRoberts R.N.) - (photo to document lacs please for chart) (19:31 11/16/2016 EKoroleva P.A.-C) (19:54 PWeiler ER Tech1) - (dressing, non adhesive/ bacitracin> gauze wrap to Left forearm) (23:36 11/16/2016 EKoroleva P.A.-C) (0:35 JQuivey R.N.) MEDICATION ORDERS: Tdap IM 0.5 mL (NOW, per protocol) (23:36 11/16/2016 EKoroleva P.A.-C) (Ack 0:00 JQuivey R.N.) (0:08 JQuivey R.N.) IV FLUIDS: Fentanyl IV 100 mcg (NOW) (20:03 11/16/2016 SRoberts R.N. verbal order read back to EKoroleva P.A.-C) (20:04 SRoberts R.N.) Toradol IV 30 mg (NOW) (20:03 11/16/2016 SRoberts R.N. verbal order read back to EKoroleva P.A.-C) (20:05 SRoberts R.N.) IV Saline Lock (20:11/16/2016 Yunior Weeks verbal order read back to Rayna White (20:04 Yunior Weeks) ORDER SHEET NOTES: [Electronically signed by Regulo Terry Dr. (05:48 11/17/2016)] [Electronically signed by Scooby Krishna R.N. (05:52 11/17/2016)] [Electronically locked/signed by Scooby Krishna R.N. (05:52 11/17/2016)]
--- NOTE | 2016-11-17 02:48 | ED NURSING NOTES ---
Clinical Report - Nurses [facility] [address] [place] [address] 11/16/2016 18:56 Patient: JESSIE MEDINA TRIAGE Triage time 1850. Acuity: LEVEL 3. Chief Complaint: DEPRESSION and (Cutting self, 5 lacerations to the lt forearm. DC from this facility this am, with a safety plan in place. Went home smoked a bowl of Marijaunna, then started to cut forearm.). Alert. No acute distress. SEPSIS SCREEN: Sepsis Screen: negative. Negative (no infection suspected/documented). FELISA COMA SCORE: Felisa Coma Scale: 15- eyes open spontaneously (4); best verbal response- oriented x 4 (5); best motor response- obeys commands (6). --19:26 Kathie Marie R.N. 19:14 11/16/16. BP: 125/82. HR: 79. RR: 20. O2 saturation: 98%. Temp: 98.3 F. Pain level now: 5/10. --19:26 Kathie Marie R.N. 19:14 11/16/16. BP: 125/82. HR: 79. RR: 20. O2 saturation: 98%. Temp: 98.3 F. Pain level now: 5/10. --19:26 Kathie Marie R.N. Weight: 77.1 kg stated. Height/Length: 63 inches Per Patient. BMI: 30.1. --19:25 Kathie Marie R.N. Medications Gabapentin Oral (Capsule 300 mg) 2 capsules, 3x a day. HydrOXYzine HCl Oral 50 mg, 3x a day as needed. Latuda Oral (Tablet 80 mg) 1 tablet, daily. SEROquel Oral (Tablet 100 mg) 1 tablet, at bedtime. Trileptal Oral (Tablet 300 mg) 1 tablet, 2x a day. --19:22 Kathie Marie R.N. Medication/allergy information source: the patient. --19:26 Kathie Marie R.N. Allergies Acetaminophen. Definite Severe(nausea) --19:22 Kathie Marie R.N. History Arrived by EMS. Historian: patient. [facility] Onset: today. He has had anxiety and describes feelings of depression. Treatment SHOES SALESPERSON: EMS treatment SHOES SALESPERSON verbally communicated. See EMS report. Oral airway. BP: 122 / 78. HR: 78. RR: 20. O2 saturation: room air 98 %. Upon arrival patient awake. PAST MEDICAL HX: Immunizations: status is unknown. SOCIAL HX: History of drug use: marijuana. SELF HARM ASSESSMENT: A self harm assessment was performed. The patient answered "yes" to the question "Have you recently felt down, depressed, or hopeless?", "Have you noticed less interest or pleasure in doing things?", "Do you have thoughts of harming or killing yourself?", "Are you here because you tried to hurt yourself?" and "Have you ever tried to hurt yourself before today?" and "no" to the question "Have you recently had thoughts about harming or killing others?" and "Do you have any dangerous items in your possession?". The patient reports their behavior. In the ED the patient has sustained a self inflicted injury. He was placed in direct sight of the nurses station. Clothes and valuables were removed and placed at the nurses station. FALL RISK ASSESSMENT: Fall risk assessment completed. No fall risk identified. NUTRITIONAL RISK ASSESSMENT: The nutritional risk assessment revealed no deficiencies. FUNCTIONAL ASSESSMENT: Functional assessment: no impairments noted. LEARNING NEEDS ASSESSMENT: The learning needs assessment revealed no barriers. SKIN INTEGRITY ASSESSMENT: Skin integrity risk assessment completed. No skin integrity risk identified. -- Kathie Marie R.N. PROBLEMS: Adjustment Disorder. Heart Disease. Suicide Attempt. Suicidal Ideation. Hx of cutting. PTSD. Bipolar Disorder. Depression. Mental Illness. Hypertension. Facial Fracture. Head Injury. Contusion. Fall. -- Kathie Marie R.N. ADDITIONAL SURGERIES: Echocardiography. Wrist. --: Kathie Marie R.N. Interventions ID band on patient. To room. -- Kathie Marie R.N. PHYSICAL ASSESSMENT Ambulatory to room. GENERAL / NEURO / PSYCH: Alert. Oriented X 4. Appears anxious. Speech within normal limits. Affect appears normal. Patient appears calm and cooperative. Good eye contact. Patient appears well-nourished and neat and clean. RESPIRATORY: Respirations not labored. CVS: Capillary refill less than 2 seconds. GI / : Abdomen nontender. SKIN: Skin is warm and dry. Numerous fresh slash asencio present to the left arm. Skin color is within normal limits. --19:27 Kathie Marie R.N. NURSING PROGRESS NOTES Head of bed elevated. Two patient identifiers checked. Call light placed in reach. Side rails up x 2. Bed placed in lowest position. Brakes of bed on. Patient ready for evaluation. --19:28 Kathie Marie R.N. 19:30. Wound cleansed with sterile saline. Wound irrigated with 1000 mL sterile NS. --19:55 Bill Hodge ER Tech1 ( Photos taken of wounds for medical record.). --19:55 Bill Hodge ER Tech1 19:39 11/16/2016 Site #1 started via IV in the right antecubital space with an 18g angiocath; one attempt. Blood drawn: rainbow set. Labeled in the presence of the patient and sent to the lab. Saline lock flushed with 10 mL saline. --20:04 Kathie Marie R.N. 19:39 11/16/2016 Fentanyl IVP 100 mcg given over 1 minute(s) via site #1. Allergies verified, confirmed 5 rights and sedative warning given to the patient. IV patency established. IV site checked: no pain, redness, or swelling. IV flushed thoroughly pre- and post-medication administration. IVP given by RN. --20:04 Kathie Marie R.N. 20:05 11/16/2016 Toradol IVP 30 mg given over 1 minute(s) via site #1. Allergies verified and confirmed 5 rights. IV patency established. IV site checked: no pain, redness, or swelling. IV flushed thoroughly pre- and post-medication administration. IVP given by RN. --20:05 Kathie Marie R.N. 20:59 Patient belongings placed in locker #5 Lock # 1. --20:59 Scooby Krishna R.N. ( Call placed to the pat team. ETA [id number].). --21:09 Kathie Marie R.N. 21:11/16/16. BP: 122/77. HR: 77. RR: 20. O2 saturation: 99% on room air. 20:11/16/16. BP: 113/79. HR: 74. RR: 18. O2 saturation: 98% on room air. --21:10 Kathie Marie R.N. 22:11/16/16. BP: 111/55. HR: 87. RR: 18. O2 saturation: 100%. --22:09 Kathie Marie R.N. 22:11/16/16. ( Patient given more food and milk.). --22:09 Kathie Marie R.N. 20:00. ( 5 packs of suture material to close wounds to lt forearm.). --23:58 Kathie Marie R.N. 23:16. The patient is sleeping. RESPIRATORY: No respiratory distress. SKIN: Skin color within normal limits. --23:16 Scooby Krishna R.N. 23:42 PAT steam hand in ED to see pt. --00:01 Scooby Krishna R.N. ( Pat team her and spoke with the patient. Patient sleeping.). --00:02 Kathie Marie R.N. 00:08 11/17/2016 TDAP IM 0.5 mL given. (Lot#: [id number], expiration date: 09/18/2018, Supervisor Sewer System: sanofi pasteur). Given in the left deltoid. Allergies verified and confirmed 5 rights. Vaccine information statement provided to the patient. --00:08 Scooby Krishna R.N. 00:19 11/17/16. ( Gauge dressing to lt forearm.). --00:19 Kathie Marie R.N. 00:19 11/17/16. BP: 122/89. HR: 72. RR: 18. O2 saturation: 100% on room air. --00:19 Kathie Marie R.N. 01:14 11/17/16. BP: 100/52. HR: 58. RR: 18. O2 saturation: 98% on room air. Additional comments: sleeping . --01:15 Kathie Marie R.N. 01:19. The patient is sleeping. RESPIRATORY: No respiratory distress. SKIN: Skin color within normal limits. --01:20 Scooby Krishna R.N. Care transferred and report given (Scooby, RN). --01:26 Kathie Marie R.N. The patient is calm and resting quietly. GENERAL / NEURO / PSYCH: Alert. Oriented X 4. Patient appears calm and cooperative. RESPIRATORY: No respiratory distress. SKIN: Skin is warm and dry. Skin color within normal limits. --03:24 Scooby Krishna R.N. 03:23 11/17/16. BP: 109/42. HR: 74. RR: 14. O2 saturation: 98% on room air. Pain level now: 0/10. --03:24 Scooby Krishna R.N. 03:24 Patient given sandwich 2 milks and cup of water. --03:25 Scooby Krishna R.N. DISPOSITION / DISCHARGE Condition at departure: stable. No learning barriers present. Patient's personal items include, Other belongings; items were placed in belongings bag and transported with the patient. He did not have glasses, contacts, dentures or a hearing aid. FALL RISK ASSESSMENT: Fall risk assessment completed. No fall risk identified. --04:38 Scooby Krishna R.N. 04:36 11/17/16. BP: 106/58. HR: 51. RR: 15. O2 saturation: 95% on room air. Pain level now: 0/10. --04:38 Scooby Krishna R.N. Report was given in person. All questions were answered. Report was acknowledged and care was transferred. ([facility]). --04:46 Scooby Krishna R.N. Transferred to [facility]. --04:47 Scooby Krishna R.N. Report was given via a phone call. Report included patient's care, treatment, medications, reviewed medication reconcilliation, and condition (including any recent changes or anticipated changes). All questions were answered. Report was acknowledged. (Quiana DALEY [place]). --04:54 Scooby Krishna R.N. Departure time: 04:50. --04:54 Scooby Krishna R.N. Locked/Released at 11/17/2016 5:52 by Scooby Krishna R.N.
--- NOTE | 2016-11-17 02:48 | ED NURSING NOTES ---
Clinical Report - Nurses [facility] [address] [place] [address] 11/16/2016 18:56 Patient: JESSIE MEDINA TRIAGE Triage time 1850. Acuity: LEVEL 3. Chief Complaint: DEPRESSION and (Cutting self, 5 lacerations to the lt forearm. DC from this facility this am, with a safety plan in place. Went home smoked a bowl of Marijaunna, then started to cut forearm.). Alert. No acute distress. SEPSIS SCREEN: Sepsis Screen: negative. Negative (no infection suspected/documented). FELISA COMA SCORE: Felisa Coma Scale: 15- eyes open spontaneously (4); best verbal response- oriented x 4 (5); best motor response- obeys commands (6). --19:26 Kathie Marie R.N. 19:14 11/16/16. BP: 125/82. HR: 79. RR: 20. O2 saturation: 98%. Temp: 98.3 F. Pain level now: 5/10. --19:26 Kathie Marie R.N. 19:14 11/16/16. BP: 125/82. HR: 79. RR: 20. O2 saturation: 98%. Temp: 98.3 F. Pain level now: 5/10. --19:26 Kathie Marie R.N. Weight: 77.1 kg stated. Height/Length: 63 inches Per Patient. BMI: 30.1. --19:25 Kathie Marie R.N. Medications Gabapentin Oral (Capsule 300 mg) 2 capsules, 3x a day. HydrOXYzine HCl Oral 50 mg, 3x a day as needed. Latuda Oral (Tablet 80 mg) 1 tablet, daily. SEROquel Oral (Tablet 100 mg) 1 tablet, at bedtime. Trileptal Oral (Tablet 300 mg) 1 tablet, 2x a day. --19:22 Kathie Marie R.N. Medication/allergy information source: the patient. --19:26 Kathie Marie R.N. Allergies Acetaminophen. Definite Severe(nausea) --19:22 Kathie Marie R.N. History Arrived by EMS. Historian: patient. [facility] Onset: today. He has had anxiety and describes feelings of depression. Treatment HEAD OF SALES AND MARKETING: EMS treatment HEAD OF SALES AND MARKETING verbally communicated. See EMS report. Oral airway. BP: 122 / 78. HR: 78. RR: 20. O2 saturation: room air 98 %. Upon arrival patient awake. PAST MEDICAL HX: Immunizations: status is unknown. SOCIAL HX: History of drug use: marijuana. SELF HARM ASSESSMENT: A self harm assessment was performed. The patient answered "yes" to the question "Have you recently felt down, depressed, or hopeless?", "Have you noticed less interest or pleasure in doing things?", "Do you have thoughts of harming or killing yourself?", "Are you here because you tried to hurt yourself?" and "Have you ever tried to hurt yourself before today?" and "no" to the question "Have you recently had thoughts about harming or killing others?" and "Do you have any dangerous items in your possession?". The patient reports their behavior. In the ED the patient has sustained a self inflicted injury. He was placed in direct sight of the nurses station. Clothes and valuables were removed and placed at the nurses station. FALL RISK ASSESSMENT: Fall risk assessment completed. No fall risk identified. NUTRITIONAL RISK ASSESSMENT: The nutritional risk assessment revealed no deficiencies. FUNCTIONAL ASSESSMENT: Functional assessment: no impairments noted. LEARNING NEEDS ASSESSMENT: The learning needs assessment revealed no barriers. SKIN INTEGRITY ASSESSMENT: Skin integrity risk assessment completed. No skin integrity risk identified. -- Kathie Marie R.N. PROBLEMS: Adjustment Disorder. Heart Disease. Suicide Attempt. Suicidal Ideation. Hx of cutting. PTSD. Bipolar Disorder. Depression. Mental Illness. Hypertension. Facial Fracture. Head Injury. Contusion. Fall. -- Kathie Marie R.N. ADDITIONAL SURGERIES: Echocardiography. Wrist. --: Kathie Marie R.N. Interventions ID band on patient. To room. -- Kathie Marie R.N. PHYSICAL ASSESSMENT Ambulatory to room. GENERAL / NEURO / PSYCH: Alert. Oriented X 4. Appears anxious. Speech within normal limits. Affect appears normal. Patient appears calm and cooperative. Good eye contact. Patient appears well-nourished and neat and clean. RESPIRATORY: Respirations not labored. CVS: Capillary refill less than 2 seconds. GI / : Abdomen nontender. SKIN: Skin is warm and dry. Numerous fresh slash asencio present to the left arm. Skin color is within normal limits. --19:27 Kathie Marie R.N. NURSING PROGRESS NOTES Head of bed elevated. Two patient identifiers checked. Call light placed in reach. Side rails up x 2. Bed placed in lowest position. Brakes of bed on. Patient ready for evaluation. --19:28 Kathie Marie R.N. 19:30. Wound cleansed with sterile saline. Wound irrigated with 1000 mL sterile NS. --19:55 Bill Hodge ER Tech1 ( Photos taken of wounds for medical record.). --19:55 Bill Hodge ER Tech1 19:39 11/16/2016 Site #1 started via IV in the right antecubital space with an 18g angiocath; one attempt. Blood drawn: rainbow set. Labeled in the presence of the patient and sent to the lab. Saline lock flushed with 10 mL saline. --20:04 Kathie Marie R.N. 19:39 11/16/2016 Fentanyl IVP 100 mcg given over 1 minute(s) via site #1. Allergies verified, confirmed 5 rights and sedative warning given to the patient. IV patency established. IV site checked: no pain, redness, or swelling. IV flushed thoroughly pre- and post-medication administration. IVP given by RN. --20:04 Kathie Marie R.N. 20:05 11/16/2016 Toradol IVP 30 mg given over 1 minute(s) via site #1. Allergies verified and confirmed 5 rights. IV patency established. IV site checked: no pain, redness, or swelling. IV flushed thoroughly pre- and post-medication administration. IVP given by RN. --20:05 Kathie Marie R.N. 20:59 Patient belongings placed in locker #5 Lock # 1. --20:59 Scooby Krishna R.N. ( Call placed to the pat team. ETA [phone].). --21:09 Kathie Marie R.N. 21:11/16/16. BP: 122/77. HR: 77. RR: 20. O2 saturation: 99% on room air. 20:11/16/16. BP: 113/79. HR: 74. RR: 18. O2 saturation: 98% on room air. --21:10 Kathie Marie R.N. 22:11/16/16. BP: 111/55. HR: 87. RR: 18. O2 saturation: 100%. --22:09 Kathie Marie R.N. 22:11/16/16. ( Patient given more food and milk.). --22:09 Kathie Marie R.N. 20:00. ( 5 packs of suture material to close wounds to lt forearm.). --23:58 Kathie Marie R.N. 23:16. The patient is sleeping. RESPIRATORY: No respiratory distress. SKIN: Skin color within normal limits. --23:16 Scooby Krishna R.N. 23:42 PAT steam shovel runner in ED to see pt. --00:01 Scooby Krishna R.N. ( Pat team her and spoke with the patient. Patient sleeping.). --00:02 Kathie Marie R.N. 00:08 11/17/2016 TDAP IM 0.5 mL given. (Lot#: [id number], expiration date: 09/18/2018, Bioprocess Engineer: sanofi pasteur). Given in the left deltoid. Allergies verified and confirmed 5 rights. Vaccine information statement provided to the patient. --00:08 Scooby Krishna R.N. 00:19 11/17/16. ( Gauge dressing to lt forearm.). --00:19 Kathie Marie R.N. 00:19 11/17/16. BP: 122/89. HR: 72. RR: 18. O2 saturation: 100% on room air. --00:19 Kathie Marie R.N. 01:14 11/17/16. BP: 100/52. HR: 58. RR: 18. O2 saturation: 98% on room air. Additional comments: sleeping . --01:15 Kathie Marie R.N. 01:19. The patient is sleeping. RESPIRATORY: No respiratory distress. SKIN: Skin color within normal limits. --01:20 Scooby Krishna R.N. Care transferred and report given (Scooby, RN). --01:26 Kathie Marie R.N. The patient is calm and resting quietly. GENERAL / NEURO / PSYCH: Alert. Oriented X 4. Patient appears calm and cooperative. RESPIRATORY: No respiratory distress. SKIN: Skin is warm and dry. Skin color within normal limits. --03:24 Scooby Krishna R.N. 03:23 11/17/16. BP: 109/42. HR: 74. RR: 14. O2 saturation: 98% on room air. Pain level now: 0/10. --03:24 Scooby Krishna R.N. 03:24 Patient given sandwich 2 milks and cup of water. --03:25 Scooby Krishna R.N. DISPOSITION / DISCHARGE Condition at departure: stable. No learning barriers present. Patient's personal items include, Other belongings; items were placed in belongings bag and transported with the patient. He did not have glasses, contacts, dentures or a hearing aid. FALL RISK ASSESSMENT: Fall risk assessment completed. No fall risk identified. --04:38 Scooby Krishna R.N. 04:36 11/17/16. BP: 106/58. HR: 51. RR: 15. O2 saturation: 95% on room air. Pain level now: 0/10. --04:38 Scooby Krishna R.N. Report was given in person. All questions were answered. Report was acknowledged and care was transferred. ([facility]). --04:46 Scooby Krishna R.N. Transferred to [facility]. --04:47 Scooby Krishna R.N. Report was given via a phone call. Report included patient's care, treatment, medications, reviewed medication reconcilliation, and condition (including any recent changes or anticipated changes). All questions were answered. Report was acknowledged. (Quiana DALEY [place]). --04:54 Scooby Krishna R.N. Departure time: 04:50. --04:54 Scooby Krishna R.N. Locked/Released at 11/17/2016 5:52 by Scooby Krishna R.N.
--- NOTE | 2016-11-17 02:48 | ED CLINICAL REPORT ---
Clinical Report - Physicians/Mid Levels [facility] [address] [place] [address] 11/16/2016 18:56 Patient: JESSIE MEDINA Time Seen: 19:27 Nov 16 2016. Arrived- By ambulance. Not in custody. Historian- patient and EMS personnel. HISTORY OF PRESENT ILLNESS Chief Complaint: SELF INJURY and SUICIDAL THOUGHTS and ATTEMPT. This started just prior to arrival. The patient has not exhibited a behavior change and was not found wandering. Recent drug use (occasional marijuana use). Has had suicidal thoughts. He inflicted self-injury. An injury is present. Location- left forearm. Patient reports feeling suicidal today, take a knife and cut himself multiple times in the left aspect. Patient is right-hand dominant. Has a previous history of cutting. Patient was last seen in the emergency . Patient reports being in an argument with his father prior to arrival, getting upset and being becoming emotional, using a kitchen knife to cut his wrists.department and contracted for safety this morning. Similar symptoms previously: Recent medical care: Not recently seen/assessed. REVIEW OF SYSTEMS No headache, dizziness, abdominal pain, vomiting or diarrhea. No skin rash. All systems otherwise negative, except as recorded above. PAST HISTORY Depression. Prior suicide attempt. Medications: Gabapentin Oral (Capsule 300 mg) 2 capsules, 3x a day. HydrOXYzine HCl Oral 50 mg, 3x a day as needed. Latuda Oral (Tablet 80 mg) 1 tablet, daily. SEROquel Oral (Tablet 100 mg) 1 tablet, at bedtime. Trileptal Oral (Tablet 300 mg) 1 tablet, 2x a day. Allergies: Acetaminophen. Definite Severe(nausea). SOCIAL HISTORY History of drug use: marijuana. Not an IV drug user. Has social support. Has place to stay. ADDITIONAL NOTES The nursing notes have been reviewed. PHYSICAL EXAM Vital Signs: 11/16/2016 19:14 BP: 125/82. HR: 79. RR: 20. O2 saturation: 98%. Temp: 98.3 F. Pain level now: 5/10. Appearance: Alert. No acute distress. Appearance is normal. Neck: Normal inspection. Neck supple. CVS: Heart sounds normal. Respiratory: Breath sounds normal. Chest nontender. No rales or wheezes. Skin: Normal skin color. Extremities: (of the palmar surface of the left forearm just distal to the elbow there are 5 lacerations from proximal aspect 6.5 cm with full thickness and gaping nature, next distal to such is a 4.5 cm full-thickness laceration, It still is a 3.5 cm laceration, Distal is 3.5 cm laceration, and most distal just proximal to the wrist is a 5 cm laceration, labeled as #5 for suture repair. Most proximal labeled as #1. He has good distal range of motion, flexion. Good distal color of the hand, capillary refill less than 3 seconds. Good distal pulses. No bleeding of the lacerations. No signs of foreign object. They are full-thickness, however no signs of osseous injury. No signs of immediate infectious process. He has full range of motion of the elbow, good manager e learning strength full range of motion of the thumb. Full range of motion of the shoulder. No other asencio.). Psych / Neuro: Oriented X 3. Cognition normal. Thought process and content normal. Insight and judgement normal. No cerebellar findings. No motor deficit. LABS, X-RAYS, AND EKG Laboratory Tests: Urine Drug Screen: (DANI: 11/16/2016 19:45) ( MsgRcvd 11/16/2016 20:28) Final results Test Result Flag Units (Reference) AMPHETAMINE/METHAMPHETAMINE NEGATIVE (NEGATIVE) BARBITURATE NEGATIVE (NEGATIVE) BENZODIAZEPINE NEGATIVE (NEGATIVE) CANNABINOID POSITIVE H (NEGATIVE) COCAINE NEGATIVE (NEGATIVE) ECSTASY NEGATIVE (NEGATIVE) METHADONE NEGATIVE (NEGATIVE) OPIATE NEGATIVE (NEGATIVE) The urine drug screen is a qualitative screening test fordrug overdose and abuse. All screen results should beconsidered as presumptive.Drugs screened for are as follows:BenzodiazepinesCocaineAmphetamines/MetamphetaminesTHC (Tetrahydrocannabinol)OpiatesBarbituratesEcstasyMethadonePositive results are unconfirmed. For confirmation, notifythe lab for the specimen to be sent to the reference lab.All confirmations must be performed by a differentmethodology.The ingestion of natural herbal and plant productscontaining Ephedra/Ephedra metabolites can produce in urineone or more substances capable of cross reacting withamphetamine/methamphetamine immunoassays. These testsprovide a preliminary result only. A more specificalternative chemical method must be used to obtain aconfirmed analytical result. Ethyl Alcohol: (DANI: 11/16/2016 19:45) ( MsgRcvd 11/16/2016 20:41) Final results Test Result Flag Units (Reference) ETHYL ALCOHOL <3 L mg/dL (3-10) THYROID STIMULATING HORMONE 1.610 uIU/mL (0.34-3.74) . PROGRESS AND PROCEDURES Laceration Repair: Time: :Nov 16 2016. Location: (Proximal forearm). Time-out completed immediately before the procedure. Length: 6.5 cm. Complexity: simple (local anesthesia used and sutured). Wound depth/shape- linear and involving fascia. Wound is clean. No contamination present. No sensory deficit or motor deficit distally. Tendon not examined. Local anesthesia provided using 1% lidocaine with epi. Prepped with Betadine. Wound explored, cleansed and irrigated. Closure of deep layer: interrupted 4-0 (15 sutures). Post-procedure: he is stable and there are no complications. Bleeding is controlled and neuro-vascular status is intact distal to the wound. Dressing applied. Tetanus immunization given. Laceration Repair #2: Time: 20:2016. Time-out completed immediately before the procedure. Location: (Left forearm, just distal to most proximal). Length: 4.5 cm. Complexity: simple (local anesthesia used and sutured). Wound depth/shape- subcutaneous and linear. Wound is clean. Distal neuro/vascular/tendon status normal. Tendon examined. No sensory deficit distally. No tendon deficit. Local anesthesia provided using 1% lidocaine with epi. Prepped with Betadine. Wound explored and cleansed. Subcutaneous closure: interrupted 4-0 (8). Post-procedure: he is stable and there are no complications. Bleeding is controlled and neuro-vascular status is intact distal to the wound. Dressing applied. Tetanus immunization given. Laceration Repair #3: Time: 2004Nov 16 2016. Time-out completed immediately before the procedure. Location: (central julien forearm). Length: 3.5 cm. Complexity: simple (local anesthesia used and sutured). Wound depth/shape- subcutaneous and linear and involving fascia. Wound is clean. No contamination present. Distal neuro/vascular/tendon status normal. Tendon examined. No sensory deficit distally. No tendon deficit. Local anesthesia provided using 1% lidocaine with epi. Prepped with Betadine. Wound explored, cleansed and irrigated. Subcutaneous closure: interrupted 4-0 (8 sutures). Post-procedure: he is stable and there are no complications. Bleeding is controlled and neuro-vascular status is intact distal to the wound. Dressing applied. Tetanus immunization up-to-date. Laceration Repair #4: Time: 2016. Time-out completed immediately before the procedure. Location: (middle/distal forearm/ julien surface). Length: 3.5 cm. Complexity: simple (local anesthesia used and sutured). Wound depth/shape- subcutaneous and linear. Wound is clean. Distal neuro/vascular/tendon status normal. Tendon examined. No sensory deficit or motor deficit distally. Local anesthesia provided using 1% lidocaine. Prepped with Betadine. Wound explored and cleansed. Subcutaneous closure: interrupted 4-0 (8 sutures). Post-procedure: he is stable and there are no complications. Bleeding is controlled. Dressing applied. Tetanus immunization given. Laceration Repair #5: Time: 2019. Time-out completed immediately before the procedure. Location: (left most distal lac on forearm). Length: 5 cm. Complexity: simple (local anesthesia used and sutured). Wound depth/shape- linear and involving fascia. Wound is clean. Distal neuro/vascular/tendon status normal. Tendon examined. No sensory deficit distally. No tendon deficit. Local anesthesia provided using 1% lidocaine. Prepped with Betadine. Wound explored, cleansed and irrigated. Subcutaneous closure: interrupted 4-0 (10). Post-procedure: he is stable and there are no complications. Bleeding is controlled and neuro-vascular status is intact distal to the wound. Dressing applied. Tetanus immunization given. Course of Care: recent labs from the eighth. TSH and urinalysis and blood alcohol as above. medically cleared Tdap in ER Dressings applied PAT team here [id number] 02:48 11/17/16. Pt accepted to [facility] @ 0500. Patient is stable. Symptoms better. Disposition: Benefits, risks and alternatives to transfer explained to patient. Transferred to [facility]. Condition: good. CLINICAL IMPRESSION Chronic bipolar disorder. Multiple deep lacerations to the left forearm. INSTRUCTIONS Your Current Medications: CONTINUE TAKING THE FOLLOWING MEDICATIONS UNTIL YOU CHECK WITH YOUR PHYSICIAN: Gabapentin Oral : Capsule 300 mg, 2 capsules 3x a day. HydrOXYzine HCl Oral : 50 mg 3x a day, prn. Latuda Oral : Tablet 80 mg, 1 tablet daily. SEROquel Oral : Tablet 100 mg, 1 tablet at bedtime. Trileptal Oral : Tablet 300 mg, 1 tablet 2x a day. Follow-up: Screening today revealed the patient's blood pressure to be in the normal range. (Electronically signed by Regulo Terry Dr. 11/17/2016 5:48)
--- NOTE | 2016-11-17 05:52 | ED MAR SUMMARY ---
..... Medication Administration Record [facility] [address] [place] [address] Patient: JESSIE MEDINA Visit ID: [id number] 31y, M Weight: 77.1 kg Height/Length: 63 in BMI: 30.1 ALLERGIES: Acetaminophen Given 19:39 11/16/2016 Kathie Marie R.N. Medication Administered: FENTANYL [IVP], Dose: 100 mcg IVP over 1 minute(s), Site: #1 right AC. Medication Ordered: Fentanyl IV 100 mcg (NOW). Given 20:05 11/16/2016 Kathie Marie R.N. Medication Administered: TORADOL [IVP], Dose: 30 mg IVP over 1 minute(s), Site: #1 right AC. Medication Ordered: Toradol IV 30 mg (NOW). Given 00:08 11/17/2016 Scooby Krishna RToby Medication Administered: TDAP [IM], Dose: 0.5 mL IM. Medication Ordered: Tdap IM 0.5 mL (NOW, per protocol).
--- NOTE | 2016-11-17 05:52 | ED MED RECONCILIATION SUMMARY ---
Patient: JESSIE MEDINA Medication Reconciliation Report [facility] VisitID: [id number] [address] [place] [address] 31y, M Registration Date/Time: 11/16/2016 Weight: 77.1 kg Height/Length: 63 in. BMI: 30.1 ALLERGIES: Acetaminophen The patient's Home Medications are listed below: CONTINUE TAKING THE FOLLOWING MEDICATIONS UNTIL YOU CHECK WITH YOUR PHYSICIAN: Gabapentin Oral (300 mg) 2 capsules, 3x a day HydrOXYzine HCl Oral 50 mg, 3x a day Latuda Oral (80 mg) 1 tablet, daily SEROquel Oral (100 mg) 1 tablet, at bedtime Trileptal Oral (300 mg) 1 tablet, 2x a day The source(s) of the original Home Medication information: patient The following Medications were given to the patient in the Emergency Department: Fentanyl [IVP] IVP 100 mcg, administered: 11/16/2016 7:39:00 PM Toradol [IVP] IVP 30 mg, administered: 11/16/2016 8:05:00 PM TDAP [IM] IM 0.5 mL, administered: 11/17/2016 12:08:00 AM The following Medications were prescribed to the patient: None.
--- NOTE | 2016-11-17 05:52 | ED MED RECONCILIATION SUMMARY ---
Patient: JESSIE MEDINA Medication Reconciliation Report [facility] VisitID: [id number] [address] [place] [address] 31y, M Registration Date/Time: 11/16/2016 Weight: 77.1 kg Height/Length: 63 in. BMI: 30.1 ALLERGIES: Acetaminophen The patient's Home Medications are listed below: CONTINUE TAKING THE FOLLOWING MEDICATIONS UNTIL YOU CHECK WITH YOUR PHYSICIAN: Gabapentin Oral (300 mg) 2 capsules, 3x a day HydrOXYzine HCl Oral 50 mg, 3x a day Latuda Oral (80 mg) 1 tablet, daily SEROquel Oral (100 mg) 1 tablet, at bedtime Trileptal Oral (300 mg) 1 tablet, 2x a day The source(s) of the original Home Medication information: patient The following Medications were given to the patient in the Emergency Department: Fentanyl [IVP] IVP 100 mcg, administered: 11/16/2016 7:39:00 PM Toradol [IVP] IVP 30 mg, administered: 11/16/2016 8:05:00 PM TDAP [IM] IM 0.5 mL, administered: 11/17/2016 12:08:00 AM The following Medications were prescribed to the patient: None.
--- NOTE | 2016-11-17 05:52 | ED MAR SUMMARY ---
..... Medication Administration Record [facility] [address] [place] [address] Patient: JESSIE MEDINA Visit ID: [id number] 31y, M Weight: 77.1 kg Height/Length: 63 in BMI: 30.1 ALLERGIES: Acetaminophen Given 19:39 11/16/2016 Kathei Marie R.N. Medication Administered: FENTANYL [IVP], Dose: 100 mcg IVP over 1 minute(s), Site: #1 right AC. Medication Ordered: Fentanyl IV 100 mcg (NOW). Given 20:05 11/16/2016 Kathie Marie R.N. Medication Administered: TORADOL [IVP], Dose: 30 mg IVP over 1 minute(s), Site: #1 right AC. Medication Ordered: Toradol IV 30 mg (NOW). Given 00:08 11/17/2016 Scooby Krishna RToby Medication Administered: TDAP [IM], Dose: 0.5 mL IM. Medication Ordered: Tdap IM 0.5 mL (NOW, per protocol).
--- NOTE | 2016-11-17 05:52 | ED DISCHARGE INSTRUCTIONS ---
Patient: JESSIE MEDINA General Instructions [facility] VisitID: [id number] [place] [address] 31y, M Registration Date/Time: 11/16/2016 Chronic bipolar disorder. Multiple deep lacerations to the left forearm. INSTRUCTIONS Your Current Medications: CONTINUE TAKING THE FOLLOWING MEDICATIONS UNTIL YOU CHECK WITH YOUR PHYSICIAN: Gabapentin Oral : Capsule 300 mg, 2 capsules 3x a day. HydrOXYzine HCl Oral : 50 mg 3x a day, prn. Latuda Oral : Tablet 80 mg, 1 tablet daily. SEROquel Oral : Tablet 100 mg, 1 tablet at bedtime. Trileptal Oral : Tablet 300 mg, 1 tablet 2x a day. Follow-up: Screening today revealed the patient's blood pressure to be in the normal range. ADDITIONAL INFORMATION Bipolar Disorder Bipolar disorder (formerly called manic depression) is an illness that causes strong mood swings between depression and mykel. This can interfere with work and relationships. In a manic episode, you may think fast and do things quickly. It may seem like you are getting a lot done. At first, this may feel very good; but in the extreme this can lead to a lifestyle that is disorganized, chaotic, and includes risky behavior (spending sprees, sexual acting-out, or drug use). In later stages, it may affect eating (no interest in food) and sleeping (unable to sleep for days at a time). Speech may speed up and become difficult for others to understand. You may appear to others as if you are in your own world. In a depressive episode, you may feel a lack of interest in normal activities. Sometimes there is sadness or guilt without any clear reason. Thinking may become slow and there can be a lack energy or feeling of hopelessness. Some people have thoughts of harming themselves at this stage. Thoughts can even turn to suicide. Between these two phases you may actually feel okay. This does not mean that the illness is gone. People with this disorder will usually have to treat it all of their life. Medication and good care can greatly reduce the symptoms. The exact cause of this illness is unknown. However, there is a genetic link that makes a person more likely to get this problem. Also, the use of drugs such as speed (amphetamine) and cocaine increase the chances of this illness appearing. Home Care: Be sure to take your medicine even if you think you dont need it. Talk with your family about your thoughts and feelings. Follow Up with your doctor or therapist as directed by our staff. They can help you to find ways to improve your life. For more information: The National [place] on Mental Illness www.ihsan.org 978-523-0471. Get Prompt Medical Attention if any of the following occur: Feeling like your symptoms are getting worse (depression, agitation, excess energy) Unable to eat or sleep for more than 48 hours Feeling out of control (racing thoughts, poor concentration) Feeling like you want to harm yourself or another Being unable to care for yourself You have been given the following additional information: Bipolar Disorder (Electronically signed by Regulo Terry Dr. 11/17/2016 5:48)
--- NOTE | 2016-11-17 05:52 | ED DISCHARGE INSTRUCTIONS ---
Patient: JESSIE MEDINA General Instructions [facility] VisitID: [id number] [place] [address] 31y, M Registration Date/Time: 11/16/2016 Chronic bipolar disorder. Multiple deep lacerations to the left forearm. INSTRUCTIONS Your Current Medications: CONTINUE TAKING THE FOLLOWING MEDICATIONS UNTIL YOU CHECK WITH YOUR PHYSICIAN: Gabapentin Oral : Capsule 300 mg, 2 capsules 3x a day. HydrOXYzine HCl Oral : 50 mg 3x a day, prn. Latuda Oral : Tablet 80 mg, 1 tablet daily. SEROquel Oral : Tablet 100 mg, 1 tablet at bedtime. Trileptal Oral : Tablet 300 mg, 1 tablet 2x a day. Follow-up: Screening today revealed the patient's blood pressure to be in the normal range. ADDITIONAL INFORMATION Bipolar Disorder Bipolar disorder (formerly called manic depression) is an illness that causes strong mood swings between depression and mykel. This can interfere with work and relationships. In a manic episode, you may think fast and do things quickly. It may seem like you are getting a lot done. At first, this may feel very good; but in the extreme this can lead to a lifestyle that is disorganized, chaotic, and includes risky behavior (spending sprees, sexual acting-out, or drug use). In later stages, it may affect eating (no interest in food) and sleeping (unable to sleep for days at a time). Speech may speed up and become difficult for others to understand. You may appear to others as if you are in your own world. In a depressive episode, you may feel a lack of interest in normal activities. Sometimes there is sadness or guilt without any clear reason. Thinking may become slow and there can be a lack energy or feeling of hopelessness. Some people have thoughts of harming themselves at this stage. Thoughts can even turn to suicide. Between these two phases you may actually feel okay. This does not mean that the illness is gone. People with this disorder will usually have to treat it all of their life. Medication and good care can greatly reduce the symptoms. The exact cause of this illness is unknown. However, there is a genetic link that makes a person more likely to get this problem. Also, the use of drugs such as speed (amphetamine) and cocaine increase the chances of this illness appearing. Home Care: Be sure to take your medicine even if you think you dont need it. Talk with your family about your thoughts and feelings. Follow Up with your doctor or therapist as directed by our staff. They can help you to find ways to improve your life. For more information: The National [place] on Mental Illness www.ihsan.org 852-856-2985. Get Prompt Medical Attention if any of the following occur: Feeling like your symptoms are getting worse (depression, agitation, excess energy) Unable to eat or sleep for more than 48 hours Feeling out of control (racing thoughts, poor concentration) Feeling like you want to harm yourself or another Being unable to care for yourself You have been given the following additional information: Bipolar Disorder (Electronically signed by Regulo Terry Dr. 11/17/2016 5:48)
== END 2016-11-17 04:50 ==
LOC: ED SRH 18:56
DX: S51.812A Laceration without foreign body of left forearm, initial encounter (principal); X78.1XXA Intentional self-harm by knife, initial encounter; Y93.9 Activity, unspecified; Y92.9 Unspecified place or not applicable; Y99.9 Unspecified external cause status; F31.9 Bipolar disorder, unspecified; Z23 Encounter for immunization; I10 Essential (primary) hypertension; Z79.899 Other long term (current) drug therapy; Z88.5 Allergy status to narcotic agent
CPT/HCPCS: 92010; 92760; 92761; 92762; 92763; 92764; 92765; 92766; 92767; 93140